=== PATIENT | male | born 1970 | race American Indian/Alaskan Native ===

== ENCOUNTER 2016-12-22 09:44 | Emergency (ER) | payer SELFPAY ==
[2016-12-22 10:49] VITALS: BP 179/115
--- NOTE | 2016-12-22 10:51 | Emergency Department Report ---
Chief Complaint: Extremity Injury, Lower Stated Complaint: RT SIDE NUMBNESS,FINGER SWELLING Time Seen by Provider: 12/22/16 10:46 - HPI History of Present Illness: PT c/o RUE and RLE edema since yesterday PT states he has a hx of gout - ROS Review of Systems: - fever + headache + rue and rle with painful edema - rash - Exam Physical Exam: PT looks well, non toxic +1 pitting edema ble No R calf tenderness negative homans MSE screening note: Focused history and physical exam performed. Due to findings the following was ordered: labs ED Disposition for MSE Condition: Stable
[2016-12-22 11:12] LABS: Basophils % (Auto) 1.1 % (0.0-1.8); Eosinophils % (Auto) 2.4 % (0.0-4.3); Hemoglobin 11.2 gm/dl (11.8-15.2); Mean Corpuscular HGB Conc 32 % (32-34); Mean Corpuscular Hemoglobin 29 pg (28-32); Mean Corpuscular Volume 90 fl (84-94); Platelet Count 369 K/mm3 (140-440); Red Blood Count 3.91 M/mm3 (3.65-5.03); Red Cell Distribution Width 15.5 % (13.2-15.2); White Blood Count 12.6 K/mm3 (4.5-11.0)
[2016-12-22 11:35] LABS: Alanine Aminotransferase 23 units/L (7-56); Albumin 4.2 g/dL (3.9-5); Alkaline Phosphatase 82 units/L (35-129); Anion Gap 18 mmol/L; BUN/Creatinine Ratio 19.23; Blood Urea Nitrogen 25 mg/dL (9-20); Calcium 9.4 mg/dL (8.4-10.2); Carbon Dioxide 23 mmol/L (22-30); Chloride 101.1 mmol/L (98-107); Creatine Kinase 226 units/L (55-170); Glucose 109 mg/dL (75-100); Potassium 4.4 mmol/L (3.6-5.0); Sodium 138 mmol/L (137-145); Total Protein 8.4 g/dL (6.3-8.2); Uric Acid 11.5 mg/dL (3.5-7.6)
--- NOTE | 2016-12-27 10:59 | ED Elopement Review ---
ED Pt Elopement review - Results review Lab results: Laboratory Tests 12/22/16 12/22/16 10:58 10:58 WBC 12.6 H RBC 3.91 Hgb 11.2 L Hct 35.0 L MCV 90 MCH 29 MCHC 32 RDW 15.5 H Plt Count 369 Lymph % (Auto) 18.5 [place] % (Auto) 7.3 Eos % (Auto) 2.4 Baso % (Auto) 1.1 Lymph # 2.3 [place] # 0.9 H Eos # 0.3 Baso # 0.1 Seg Neutrophils % 70.7 H Seg Neutrophils # 8.9 H Sodium 138 Potassium 4.4 Chloride 101.1 Carbon Dioxide 23 Anion Gap 18 BUN 25 H Creatinine 1.3 Estimated GFR > 60 BUN/Creatinine Ratio 19.23 Glucose 109 H Uric Acid 11.5 H Calcium 9.4 Total Bilirubin 0.20 AST 18 ALT 23 Alkaline Phosphatase 82 Total Creatine Kinase 226 H Total Protein 8.4 H Albumin 4.2 Albumin/Globulin Ratio 1.0 - Call Back decision Pt Call Back Decision: No action required
== END 2016-12-22 11:00 | disposition left against medical advice (07) ==
LOC: ED 09:44
DX: R20.0 Anesthesia of skin (principal); M79.89 Other specified soft tissue disorders; Z53.21 Procedure and treatment not carried out due to patient leaving prior to being seen by health care provider
CPT/HCPCS: 36415; 80053; 82550; 84550; 85025

== ENCOUNTER 2017-06-08 19:17 | Emergency (ER) | payer SELFPAY ==
[2017-06-08 20:46] LABS: Eosinophils % (Auto) 1.3 % (0.0-4.3); Hematocrit 31.3 % (35.5-45.6); Hemoglobin 10.1 gm/dl (11.8-15.2); Mean Corpuscular HGB Conc 32 % (32-34); Mean Corpuscular Hemoglobin 28 pg (28-32); Mean Corpuscular Volume 86 fl (84-94); Platelet Count 393 K/mm3 (140-440); Red Blood Count 3.66 M/mm3 (3.65-5.03); Red Cell Distribution Width 15.6 % (13.2-15.2); White Blood Count 15.1 K/mm3 (4.5-11.0)
[2017-06-08 21:09] LABS: BUN/Creatinine Ratio 11; Blood Urea Nitrogen 14 mg/dL (9-20); Calcium 9.2 mg/dL (8.4-10.2); Carbon Dioxide 23 mmol/L (22-30); Glucose 103 mg/dL (75-100)
[2017-06-08 21:10] LABS: Anion Gap 20 mmol/L; Chloride 101.4 mmol/L (98-107); Potassium 3.9 mmol/L (3.6-5.0); Sodium 140 mmol/L (137-145)
--- NOTE | 2017-06-08 21:15 | XRay Report ---
FINAL REPORT PROCEDURE: XR CHEST ROUTINE 2V TECHNIQUE: PA and lateral chest radiographs were obtained. CPT 12059 HISTORY: Shortness of breath COMPARISON: No prior studies are available for comparison. FINDINGS: Heart: Normal. Mediastinum/Vessels: Normal. Lungs/Pleural space: Normal. Bony thorax: No acute osseous abnormality. Other: IMPRESSION: Normal examination.
[2017-06-09 01:34] LABS: Bilirubin,Urine NEG (Negative); Blood,Urine NEG (Negative); Ketones,Urine NEG (Negative); Leukocyte Esterase,Urine NEG (Negative); Mucus,Urine FEW /HPF; Nitrite,Urine NEG (Negative); RBC,Urine < 1.0 /HPF (0.0-6.0); Urobilinogen,Urine < 2.0 mg/dL (<2.0)
[2017-06-09] MEDS ORDERED: DILAUDID IV ONE (07:00)
[2017-06-09] MEDS ORDERED: NACL 0.9% 1000 ML 1,000 ML IV ONE (07:00)
--- NOTE | 2017-06-09 07:01 | Emergency Department Report ---
ED General Adult HPI - General Chief complaint: Chest Pain Stated complaint: FLANK PAIN Time Seen by Provider: 06/09/17 06:45 Source: patient, RN notes reviewed, old records reviewed Mode of arrival: Ambulatory Limitations: No Limitations - History of Present Illness Initial comments: This is a 47-year-old male. Patient has a past medical history of hypertension , gallops, obesity. Patient presents to the ER with left lower back pain that has been present since Thursday, now associated with right lower back pain. He also indicates that the back pain involves his upper thoracic region, left paracervical neck region, and also left-sided chest wall region. However, his chest wall discomfort has been present for weeks, and he describes it as "pulling." He also describes right foot swelling which has since resolved. There is no severe headache, midline neck pain, severe shortness of breath, testicular pain , or irritative urinary symptoms. His pain in the left back increases with range of motion and twisting. It decreases with rest. On review of systems he also admits to bright red blood per rectum for one week. No DVT or pulmonary most risk factors. -: Gradual, days(s) Location: chest, back, left, lower extremity Severity scale (0 -10): 3 Quality: aching Consistency: intermittent Improves with: rest Worsens with: movement Associated Symptoms: chest pain. denies: confusion, fever/chills, rash, seizure , syncope, weakness - Related Data Previous Rx's Medication Instructions Recorded Last Taken Type ALBUTEROL Inhaler [ProAir HFA 2 puff IH QID PRN #1 unit 05/18/16 Unknown Rx Inhaler] Amoxicillin/K Clav Tab [Augmentin 1 tab PO Q12HR #4 day 05/18/16 Unknown Rx 875 mg] guaiFENesin/CODEINE [Robitussin AC] 5 ml PO Q12H PRN #30 oral.liqd 05/18/16 Unknown Rx oxyCODONE /ACETAMINOPHEN [Percocet 1 tab PO Q6H PRN #30 tablet 05/18/16 Unknown Rx 5/325 mg] Carvedilol [Coreg] 12.5 mg PO BID #60 tablet 09/11/16 Unknown Rx Acetaminophen [Tylenol Arthritis] 650 mg PO Q6HR PRN #30 tablet.er 06/09/17 Unknown Rx Ibuprofen [Motrin] 600 mg PO Q8H PRN #30 tablet 06/09/17 Unknown Rx Ondansetron [Zofran Odt] 4 mg PO Q8HR PRN #20 tab.rapdis 06/09/17 Unknown Rx Allergies Allergy/AdvReac Type Severity Reaction Status Date / Time No Known Allergies Allergy Verified 10/17/15 14:34 ED Review of Systems ROS: Stated complaint: FLANK PAIN Other details as noted in HPI Constitutional: denies: fever Eyes: denies: eye discharge ENT: denies: epistaxis Respiratory: see HPI Cardiovascular: chest pain Gastrointestinal: abdominal pain Genitourinary: as per HPI Musculoskeletal: back pain Skin: as per HPI Neurological: weakness ED Past Medical Hx - Past Medical History Previous Medical History?: Yes Hx Hypertension: Yes Additional medical history: GOUT. anemia - Surgical History Past Surgical History?: No - Social History Smoking Status: Never Smoker Substance Use Type: None - Medications Home Medications: Home Medications Medication Instructions Recorded Confirmed Last Taken Type ALBUTEROL Inhaler [ProAir HFA 2 puff IH QID PRN #1 unit 05/18/16 Unknown Rx Inhaler] Amoxicillin/K Clav Tab [Augmentin 1 tab PO Q12HR #4 day 05/18/16 Unknown Rx 875 mg] guaiFENesin/CODEINE [Robitussin AC] 5 ml PO Q12H PRN #30 oral.liqd 05/18/16 Unknown Rx oxyCODONE /ACETAMINOPHEN [Percocet 1 tab PO Q6H PRN #30 tablet 05/18/16 Unknown Rx 5/325 mg] Carvedilol [Coreg] 12.5 mg PO BID #60 tablet 09/11/16 Unknown Rx Acetaminophen [Tylenol Arthritis] 650 mg PO Q6HR PRN #30 tablet.er 06/09/17 Unknown Rx Ibuprofen [Motrin] 600 mg PO Q8H PRN #30 tablet 06/09/17 Unknown Rx Ondansetron [Zofran Odt] 4 mg PO Q8HR PRN #20 tab.rapdis 06/09/17 Unknown Rx ED Physical Exam - General Limitations: No Limitations General appearance: alert, in no apparent distress, obese - Head Head exam: Present: atraumatic, normocephalic - Eye Eye exam: Present: normal appearance, PERRL, EOMI, other (visual acuity intact to finger counting, color perception, reading at a close distance). Absent: nystagmus - ENT ENT exam: Present: normal exam, normal orophraynx, mucous membranes moist, normal external ear exam - Neck Neck exam: Present: normal inspection, full ROM - Respiratory Respiratory exam: Present: normal lung sounds bilaterally. Absent: respiratory distress - Cardiovascular Cardiovascular Exam: Present: regular rate, normal rhythm, normal heart sounds. Absent: systolic murmur, diastolic murmur, rubs, gallop - GI/Abdominal GI/Abdominal exam: Present: soft, normal bowel sounds. Absent: distended, tenderness, guarding, rebound, rigid, pulsatile mass - Rectal Rectal exam: Present: normal inspection, heme (-) stool - Extremities Exam Extremities exam: Present: normal inspection, full ROM, normal capillary refill. Absent: pedal edema, joint swelling, calf tenderness - Back Exam Back exam: Present: normal inspection, full ROM, paraspinal tenderness - Neurological Exam Neurological exam: Present: alert, oriented X3, CN II-XII intact, other ( Extraocular movements intact. Tongue midline. No facial droop. Facial sensation intact to light touch in the V1, V2, V3 distribution bilaterally. 5 and 5 strength in 4 extremities.. Sensation is intact to light touch in 4 extremities.). Absent: motor sensory deficit - Psychiatric Psychiatric exam: Present: normal affect, normal mood - Skin Skin exam: Present: warm, dry, intact, normal color. Absent: rash ED Course Vital Signs 06/08/17 06/08/17 06/09/17 19:49 19:50 01:34 Temperature 98.4 F 98.1 F Pulse Rate 76 76 68 Respiratory 20 18 Rate Blood Pressure 165/100 165/100 182/107 O2 Sat by Pulse 98 98 100 Oximetry 06/09/17 06/09/17 06/09/17 02:00 02:19 02:30 Temperature Pulse Rate 76 Respiratory 18 15 Rate Blood Pressure 181/101 165/93 O2 Sat by Pulse 99 96 Oximetry 06/09/17 06/09/17 06/09/17 03:00 03:30 04:00 Temperature Pulse Rate 81 76 71 Respiratory 17 17 16 Rate Blood Pressure 157/93 148/78 155/92 O2 Sat by Pulse 97 Oximetry 06/09/17 06/09/17 06/09/17 04:30 05:00 05:31 Temperature Pulse Rate 74 73 67 Respiratory 19 18 17 Rate Blood Pressure 145/82 149/87 149/87 O2 Sat by Pulse 96 95 Oximetry 06/09/17 06/09/17 06/09/17 06:00 06:30 07:00 Temperature Pulse Rate 67 65 67 Respiratory 16 14 15 Rate Blood Pressure 153/92 155/96 165/104 O2 Sat by Pulse 98 93 97 Oximetry 06/09/17 06/09/17 06/09/17 08:50 09:00 09:17 Temperature 98 F Pulse Rate Respiratory Rate Blood Pressure 169/102 168/92 O2 Sat by Pulse 98 Oximetry 06/09/17 10:00 Temperature Pulse Rate Respiratory Rate Blood Pressure 156/93 O2 Sat by Pulse Oximetry - Reevaluation(s) Reevaluation #1: 06/09/17 07:18 Differential diagnosis, including the not limited to: Pulmonary embolus, pneumonia, renal colic, psoas abscess, intra-abdominal infection, muscular skeletal back pain, history of GI bleed Assessment and plan: 47-year-old male with multiple complaints, mostly including back pain, left-sided upper and lower, body aches, and right foot swelling. On review of systems he did endorse rectal bleeding. Patient is low risk by BARB score, low risk by heart score, had a negative nuclear stress test in 2016, his EKG does demonstrate some nonspecific abnormalities, with some nonspecific T-wave changes. CT scan of the chest is pending, CT scan of the abdomen and pelvis is pending, a rectal examination, there is no obvious blood in his hemoglobin and hematocrit appeared to be acceptable. Patient will be given IV fluids, and 0.25 mg of hydromorphone. We will reassess after CT scans. 06/09/17 07:22 However, the patient's EKGs and serial do suggest some nonspecific T-wave changes 06/09/17 09:37 Reevaluation #2: 06/09/17 09:37 Patient sleeping. Patient in no distress. CT scan of the chest, abdomen, pelvis demonstrate no significant findings. Have a page out to cardiology to discuss. Reevaluation #3: 06/09/17 11:52 Patient has been resting comfortably for hours without difficulty. His chest pain is historically atypical, has been present for weeks. His case, physical exam findings EKG and entire presentation were relayed to consult and cardiology , Dr. Harris, who agreed that given atypical story and weeks of symptoms, patient would not require admission to the hospital for repeat acute coronary syndrome risk stratification, and agreed that patient should follow-up with his group later on this week. ED Medical Decision Making - Lab Data Result diagrams: 06/08/17 20:31 06/08/17 20:31 Vital Signs 06/08/17 06/08/17 06/09/17 19:49 19:50 01:34 Temperature 98.4 F 98.1 F Pulse Rate 76 76 68 Respiratory 20 18 Rate Blood Pressure 165/100 165/100 182/107 O2 Sat by Pulse 98 98 100 Oximetry 06/09/17 06/09/17 06/09/17 02:00 02:19 02:30 Temperature Pulse Rate 76 Respiratory 18 15 Rate Blood Pressure 181/101 165/93 O2 Sat by Pulse 99 96 Oximetry 06/09/17 06/09/17 06/09/17 03:00 03:30 04:00 Temperature Pulse Rate 81 76 71 Respiratory 17 17 16 Rate Blood Pressure 157/93 148/78 155/92 O2 Sat by Pulse 97 Oximetry 06/09/17 06/09/17 06/09/17 04:30 05:00 05:31 Temperature Pulse Rate 74 73 67 Respiratory 19 18 17 Rate Blood Pressure 145/82 149/87 149/87 O2 Sat by Pulse 96 95 Oximetry 06/09/17 06/09/17 06:00 06:30 Temperature Pulse Rate 67 65 Respiratory 16 14 Rate Blood Pressure 153/92 155/96 O2 Sat by Pulse 98 93 Oximetry Lab Results 06/08/17 06/08/17 06/09/17 Range/Units 20:31 20:31 01:00 WBC 15.1 H (4.5-11.0) K/mm3 RBC 3.66 (3.65-5.03) M/mm3 Hgb 10.1 L (11.8-15.2) gm/dl Hct 31.3 L (35.5-45.6) % MCV 86 (84-94) fl MCH 28 (28-32) pg MCHC 32 (32-34) % RDW 15.6 H (13.2-15.2) % Plt Count 393 (140-440) K/mm3 Lymph % (Auto) 18.1 (13.4-35.0) % [place] % (Auto) 8.7 H (0.0-7.3) % Eos % (Auto) 1.3 (0.0-4.3) % Baso % (Auto) 1.0 (0.0-1.8) % Lymph # 2.7 (1.2-5.4) K/mm3 [place] # 1.3 H (0.0-0.8) K/mm3 Eos # 0.2 (0.0-0.4) K/mm3 Baso # 0.1 (0.0-0.1) K/mm3 Seg Neutrophils % 70.9 H (40.0-70.0) % Seg Neutrophils # 10.7 H (1.8-7.7) K/mm3 Sodium 140 (137-145) mmol/L Potassium 3.9 (3.6-5.0) mmol/L Chloride 101.4 (98-107) mmol/L Carbon Dioxide 23 (22-30) mmol/L Anion Gap 20 mmol/L BUN 14 (9-20) mg/dL Creatinine 1.3 (0.8-1.5) mg/dL Estimated GFR > 60 ml/min BUN/Creatinine Ratio 11 % Glucose 103 H (75-100) mg/dL Calcium 9.2 (8.4-10.2) mg/dL Troponin T < 0.010 (0.00-0.029) ng/mL Urine Color Yellow (Yellow) Urine Turbidity Clear (Clear) Urine pH 5.0 (5.0-7.0) Ur Specific [place] 1.013 (1.003-1.030) Urine Protein 30 mg/dl (Negative) mg/dL Urine Glucose (UA) Neg (Negative) mg/dL Urine Ketones Neg (Negative) mg/dL Urine Blood Neg (Negative) Urine Nitrite Neg (Negative) Urine Bilirubin Neg (Negative) Urine Urobilinogen < 2.0 (<2.0) mg/dL Ur Leukocyte Esterase Neg (Negative) Urine WBC (Auto) 2.0 (0.0-6.0) /HPF Urine RBC (Auto) < 1.0 (0.0-6.0) /HPF U Epithel Cells (Auto) 1.0 (0-13.0) /HPF Urine Mucus Few /HPF - EKG Data -: EKG Interpreted by Me - EKG Data 12/05/17 07:20 Normal sinus, 73 bpm, normal axis, normal intervals, high left ventricular voltage, appears unchanged from prior EKG from September 2016. EKG #2 demonstrates normal sinus, 69 bpm, normal axis, biphasic T waves in V4, V5, nonspecific ST elevation, abnormal EKG, nonspecific changes compared to prior EKG #3 demonstrates persistent T-wave changes, nonspecific ST elevation, high left ventricular voltage, not morphologically consistent with ST elevation myocardial infarction - Radiology Data Radiology results: report reviewed, image reviewed X-ray of the chest is negative for acute disease CT scan of the chest, abdomen, pelvis have no significant findings. Critical care attestation.: If time is entered above; I have spent that time in minutes in the direct care of this critically ill patient, excluding procedure time. ED Disposition Clinical Impression: Low back pain, Chest pain Disposition: TO HOME OR SELFCARE Is pt being admited?: No Does the pt Need Aspirin: No Condition: Stable Instructions: Chest Pain (ED) Additional Instructions: Take the pain medication, nausea medication as directed. 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 Blood pressure was elevated, and this should be followed up by a primary care doctor or [employer] team leader next month. Dr. Parada is a local primary care doctor. Long-term palpitations of hypertension and elevated blood pressure includes stroke, heart attack, disability, , paralysis, loss of quality of life. Return to the ER right away with new pain, worsening, migration of pain, fevers, chills, lethargy, irritable to, projectile vomiting, change in mental status, confusion, inability to tolerate liquid feeds. Prescriptions: Acetaminophen [Tylenol Arthritis] 650 mg PO Q6HR PRN #30 tablet.er PRN Reason: Pain Ibuprofen [Motrin] 600 mg PO Q8H PRN #30 tablet PRN Reason: Pain Ondansetron [Zofran Odt] 4 mg PO Q8HR PRN #20 tab.rapdis PRN Reason: Nausea Referrals: PRIMARY CARE, [Primary Care Provider] - 3-5 Days BASILIA HARRIS MD [Staff Physician] - 3-5 Days PATSY PARADA MD [Referring] - 3-5 Days KAYLYN BOLIVAR MD [Referring] - 3-5 Days
[2017-06-09] MEDS ORDERED: NACL ONE (07:26)
--- NOTE | 2017-06-09 08:29 | Cat Scan Report ---
CT angiography of the chest with 3-D reconstructed images. History: Chest and back pain. Findings: There is no evidence of pulmonary emboli. The lungs are clear. There is no pleural fluid. Impression: Normal study.
--- NOTE | 2017-06-09 08:37 | Cat Scan Report ---
CT of the abdomen and pelvis with IV contrast. History: Right flank and abdominal pain. Findings: The liver, spleen, and pancreas are unremarkable. The adrenal glands are normal. There are multiple bilateral renal cysts, the largest of which in the right kidney measures 3.6 cm in diameter and is stable compared to previous study in May 2016. There are no other significant renal abnormalities. There no pelvic masses or abnormal fluid collections. No retroperitoneal adenopathy is seen. The appendix is normal. Impression: Stable bilateral renal cysts, otherwise unremarkable study.
[2017-06-09 10:46] VITALS: BP 156/93
== END 2017-06-09 12:03 | disposition home or self-care (01) ==
LOC: ED 19:17
DX: M54.5 Low back pain (principal); M54.6 Pain in thoracic spine; R07.89 Other chest pain; I10 Essential (primary) hypertension; M10.9 Gout, unspecified; M54.2 Cervicalgia; N28.1 Cyst of kidney, acquired
CPT/HCPCS: 36415; 71020; 71275; 74177; 80048; 81001; 82271; 84484; 85025; 93005; 93010; 96361; 96374; 99284; J1170; J7030; Q9967

== ENCOUNTER 2017-12-17 12:03 | Emergency (ER) | payer SELFPAY ==
[2017-12-17] MEDS ORDERED: TORADOL IM ONE (12:56)
[2017-12-17] MEDS ORDERED: ULTRAM PO ONE (12:56)
[2017-12-17] MEDS ORDERED: CATAPRES PO ONE (12:56)
--- NOTE | 2017-12-17 12:59 | Emergency Department Report ---
Blank Doc - Documentation Documentation: 47-year-old male with a past medical history of hypertension and gout presents to the hospital complaining of generalized body aches 2 weeks. Patient has multiple joints involved in a moves around to different joints all the time. Contrary to triage patient denies any numbness. No reports of fever. Noncompliant with blood pressure medicine since April 2017 Basic blood work ordered cbc, bmp toradol, tramadol clonindine for bp If ED workup unremarkable patient will need BP medication and PMD follow-up ( free/discounted clinic) For further management
[2017-12-17 13:10] VITALS: BP 142/98
[2017-12-17 13:25] LABS: Basophils # (Auto) 0.1 K/mm3 (0.0-0.1); Basophils % (Auto) 1.1 % (0.0-1.8); Eosinophils # (Auto) 0.2 K/mm3 (0.0-0.4); Eosinophils % (Auto) 1.4 % (0.0-4.3); Hematocrit 30.8 % (35.5-45.6); Hemoglobin 9.6 gm/dl (11.8-15.2); Lymphocytes # (Auto) 2.1 K/mm3 (1.2-5.4); Lymphocytes % (Auto) 16.8 % (13.4-35.0); Mean Corpuscular HGB Conc 31 % (32-34); Mean Corpuscular Volume 79 fl (84-94); Monocytes # (Auto) 0.5 K/mm3 (0.0-0.8); Monocytes % (Auto) 4.4 % (0.0-7.3); Platelet Count 484 K/mm3 (140-440); Red Blood Count 3.91 M/mm3 (3.65-5.03); Red Cell Distribution Width 16.5 % (13.2-15.2)
[2017-12-17 13:27] LABS: Mean Corpuscular Hemoglobin 25 pg (28-32)
[2017-12-17 13:42] LABS: BUN/Creatinine Ratio 10; Blood Urea Nitrogen 15 mg/dL (9-20); Calcium 9.4 mg/dL (8.4-10.2); Hemolysis Index 3
--- NOTE | 2017-12-17 14:29 | Emergency Department Report ---
ED Extremity Problem HPI - General Chief complaint: Pain General Stated complaint: RIGHT SIDE NUMBNESS Time Seen by Provider: 12/17/17 12:42 Source: patient Mode of arrival: Wheelchair Limitations: No Limitations - History of Present Illness Initial comments: 47-year-old male past medical history hypertension, gout, anemia presents with complaint of several years of joint aches. Patient denies fever chills nausea vomiting chest pain palpitations shortness of breath denies any recent trauma. Complaining of chronic pain and lower back left shoulder bilateral elbows bilateral wrists and bilateral knees. Patient is ambulatory without assistance. Past medical history drug use, specifically cocaine. Patient denies any chest pain palpitations shortness of breath nausea vomiting dizziness. Denies any fevers or chills. Ambulatory without assistance. Denies smoking or alcohol use. States that this joint pain has been going on for several years. Denies any rectal bleeding or hematuria. MD Complaint: extremity pain -: year(s) Location: left, right, upper extremity, lower extremity, bilateral lower extremity -: Yes arthralgia Severity scale (0 -10): 10 Quality: aching Consistency: intermittent - Related Data Previous Rx's Medication Instructions Recorded Last Taken Type ALBUTEROL Inhaler [ProAir HFA 2 puff IH QID PRN #1 unit 05/18/16 Unknown Rx Inhaler] Amoxicillin/K Clav Tab [Augmentin 1 tab PO Q12HR #4 day 05/18/16 Unknown Rx 875 mg] guaiFENesin/CODEINE [Robitussin AC] 5 ml PO Q12H PRN #30 oral.liqd 05/18/16 Unknown Rx oxyCODONE /ACETAMINOPHEN [Percocet 1 tab PO Q6H PRN #30 tablet 05/18/16 Unknown Rx 5/325 mg] Carvedilol [Coreg] 12.5 mg PO BID #60 tablet 09/11/16 Unknown Rx Acetaminophen [Tylenol Arthritis] 650 mg PO Q6HR PRN #30 tablet.er 06/09/17 Unknown Rx Ibuprofen [Motrin] 600 mg PO Q8H PRN #30 tablet 06/09/17 Unknown Rx Ondansetron [Zofran Odt] 4 mg PO Q8HR PRN #20 tab.rapdis 06/09/17 Unknown Rx Ibuprofen [Motrin] 600 mg PO Q8H PRN #20 tablet 12/17/17 Unknown Rx Multivit-Mins/Iron/Folic/Lycop 1 each PO QDAY #1 bottle 12/17/17 Unknown Rx [Men Under 50 Multivitamin Tab] amLODIPine [Norvasc] 5 mg PO DAILY #30 tab 12/17/17 Unknown Rx Allergies Allergy/AdvReac Type Severity Reaction Status Date / Time No Known Allergies Allergy Verified 10/17/15 14:34 ED Review of Systems ROS: Stated complaint: RIGHT SIDE NUMBNESS Other details as noted in HPI Constitutional: denies: chills, fever Eyes: denies: eye pain, eye discharge, vision change ENT: denies: ear pain, throat pain Respiratory: denies: cough, shortness of breath, wheezing Cardiovascular: denies: chest pain, palpitations Endocrine: no symptoms reported Gastrointestinal: denies: abdominal pain, nausea, diarrhea Genitourinary: denies: urgency, dysuria Musculoskeletal: as per HPI, arthralgia (chronic joint pain). denies: back pain , joint swelling Skin: denies: rash, lesions Neurological: denies: headache, weakness, paresthesias Psychiatric: denies: anxiety, depression Hematological/Lymphatic: denies: easy bleeding, easy bruising ED Past Medical Hx - Past Medical History Previous Medical History?: Yes Hx Hypertension: Yes Additional medical history: GOUT. anemia, Hx of drug use. No tx for drug use - Surgical History Past Surgical History?: No - Social History Smoking Status: Former Smoker Substance Use Type: Alcohol - Medications Home Medications: Home Medications Medication Instructions Recorded Confirmed Last Taken Type ALBUTEROL Inhaler [ProAir HFA 2 puff IH QID PRN #1 unit 05/18/16 Unknown Rx Inhaler] Amoxicillin/K Clav Tab [Augmentin 1 tab PO Q12HR #4 day 05/18/16 Unknown Rx 875 mg] guaiFENesin/CODEINE [Robitussin AC] 5 ml PO Q12H PRN #30 oral.liqd 05/18/16 Unknown Rx oxyCODONE /ACETAMINOPHEN [Percocet 1 tab PO Q6H PRN #30 tablet 05/18/16 Unknown Rx 5/325 mg] Carvedilol [Coreg] 12.5 mg PO BID #60 tablet 09/11/16 Unknown Rx Acetaminophen [Tylenol Arthritis] 650 mg PO Q6HR PRN #30 tablet.er 06/09/17 Unknown Rx Ibuprofen [Motrin] 600 mg PO Q8H PRN #30 tablet 06/09/17 Unknown Rx Ondansetron [Zofran Odt] 4 mg PO Q8HR PRN #20 tab.rapdis 06/09/17 Unknown Rx Ibuprofen [Motrin] 600 mg PO Q8H PRN #20 tablet 12/17/17 Unknown Rx Multivit-Mins/Iron/Folic/Lycop 1 each PO QDAY #1 bottle 12/17/17 Unknown Rx [Men Under 50 Multivitamin Tab] amLODIPine [Norvasc] 5 mg PO DAILY #30 tab 12/17/17 Unknown Rx ED Physical Exam - General Limitations: No Limitations General appearance: alert, in no apparent distress - Head Head exam: Present: atraumatic, normocephalic - Eye Eye exam: Present: normal appearance, PERRL, EOMI - ENT ENT exam: Present: mucous membranes moist - Neck Neck exam: Present: normal inspection, full ROM - Respiratory Respiratory exam: Present: normal lung sounds bilaterally. Absent: respiratory distress - Cardiovascular Cardiovascular Exam: Present: regular rate, normal rhythm. Absent: systolic murmur, diastolic murmur, rubs, gallop - GI/Abdominal GI/Abdominal exam: Present: soft, normal bowel sounds - Rectal Rectal exam: Present: deferred - Extremities Exam Extremities exam: Present: normal inspection, full ROM (full range of motion all extremities upper and lower shoulders elbows wrists and knees hips ankles and feet bilaterally.) - Back Exam Back exam: Present: normal inspection, full ROM - Neurological Exam Neurological exam: Present: alert, oriented X3, CN II-XII intact, normal gait - Expanded Neurological Exam Expanded Patient oriented to: Present: person, place, time Sensory exam: Upper Extremity Light Touch: Normal, Lower Extremity Light Touch: Normal Motor strength exam: RUE: 5, LUE: 5, RLE: 5, LLE: 5 Best Eye Response ([place]): (4) open spontaneously Best Motor Response ([place]): (6) obeys commands Best Verbal Response ([place]): (5) oriented [place] Total: 15 - Psychiatric Psychiatric exam: Present: normal affect, normal mood - Skin Skin exam: Present: warm, dry, intact, normal color. Absent: rash ED Course Vital Signs 12/17/17 12/17/17 12/17/17 12:18 13:09 13:12 Temperature 97.4 F L Pulse Rate 77 62 62 Respiratory 20 Rate Blood Pressure 181/109 142/98 Blood Pressure 142/98 [Left] O2 Sat by Pulse 99 Oximetry ED Medical Decision Making - Lab Data Result diagrams: 12/17/17 13:04 12/17/17 13:04 - Medical Decision Making A/P: Chronic joint pain, anemia, hypertension chronic 1-prescribed patient iron supplements and multivitamins. I informed him of his mild anemia. Patient denies any hematuria or rectal bleeding. Patient denies any current bleeding. I advised him to follow-up with primary care 2- labs otherwise unremarkable, I reviewed them with Dr. Rodriguez before discharge 3-vital signs stable for discharge. 4-low-dose Norvasc follow-up with primary care I advised patient to return to the ED for any chest pain shortness of breath palpitations Critical care attestation.: If time is entered above; I have spent that time in minutes in the direct care of this critically ill patient, excluding procedure time. ED Disposition Clinical Impression: Body aches, Chronic joint pain, Asymptomatic hypertension Disposition: - TO HOME OR SELFCARE Is pt being admited?: No Does the pt Need Aspirin: No Condition: Stable Instructions: Hypertension (ED), Arthralgia (ED), Iron Rich Diet (ED), Anemia ( ED) Prescriptions: amLODIPine [Norvasc] 5 mg PO DAILY #30 tab Ibuprofen [Motrin] 600 mg PO Q8H PRN #20 tablet PRN Reason: Pain Multivit-Mins/Iron/Folic/Lycop [Men Under 50 Multivitamin Tab] 1 each PO QDAY # 1 bottle Referrals: [facility] [Outside] - 3-5 Days [facility] [Outside] - 3-5 Days Forms: Work/School Release Form(ED) Time of Disposition: 14:35
[2017-12-17] MEDS ORDERED: NORCO 5/325 PO ONE (14:33)
== END 2017-12-17 14:43 | disposition home or self-care (01) ==
LOC: ED 12:03
DX: M79.1 Myalgia (principal); I10 Essential (primary) hypertension; D64.9 Anemia, unspecified; Z87.891 Personal history of nicotine dependence
CPT/HCPCS: 36415; 80048; 82550; 85025; 96372; 99283; J1885

== ENCOUNTER 2018-01-04 12:21 | Emergency (ER) | payer SELFPAY ==
[2018-01-04 12:30] VITALS: BP 154/93
--- NOTE | 2018-01-04 13:27 | Emergency Department Report ---
Chief Complaint: Extremity Injury, Lower Stated Complaint: LIGHT HEADED AND LEFT FOOT PAIN Time Seen by Provider: 01/04/18 13:03 - HPI History of Present Illness: Patient is a 47-year-old -[place] male who is presenting with left foot swelling. Patient has a history of gout and is not her primary care physician. Patient states for the past several days he's had some increased swelling is consistent with his gout. Patient denies any fevers chills nausea vomiting. There's been no injury to the foot. Patient states the pain is 8 out of 10 in severity. - ROS Review of Systems: All other systems reviewed are negative - Exam Vital Signs: Vital Signs 01/04/18 12:27 Temperature 98.3 F Pulse Rate 92 H Respiratory 18 Rate Blood Pressure 154/93 O2 Sat by Pulse 99 Oximetry Physical Exam: Focused physical exam the patient has some slight swelling and warmth to the left foot with no erythema. Heart lungs were within normal limits. MSE screening note: Focused history and physical exam performed. Due to findings the following was ordered: ED Medical Decision Making - Medical Decision Making The patient's symptoms are consistent with a gouty arthritis. This is a chronic issue the patient has had numerous times. Patient has a nonmedical emergency at this time and has opted to not pale or 150s co-pay. Patient referred to [facility] today to get his urgent care needs met. ED Disposition for MSE Clinical Impression: Gout attack Qualifiers: Gout site: foot Gout etiology: unspecified cause Laterality: left Qualified Code(s): M10.9 - Gout, unspecified Disposition: MED SCREENING EXAM-LEFT Is pt being admited?: No Does the pt Need Aspirin: No Condition: Stable Referrals: PRIMARY CARE, [Primary Care Provider] - 3-5 Days
== END 2018-01-04 14:22 | disposition left against medical advice (07) ==
LOC: ED 12:21
DX: M10.9 Gout, unspecified (principal); R22.42 Localized swelling, mass and lump, left lower limb; Z53.21 Procedure and treatment not carried out due to patient leaving prior to being seen by health care provider

== ENCOUNTER 2018-01-09 12:56 | Inpatient (IN) | payer OTHER ==
--- NOTE | 2018-01-09 17:10 | Emergency Department Report ---
ED General Adult HPI - General Chief complaint: Pain General Stated complaint: PAIN EVERY WHERE Time Seen by Provider: 01/09/18 15:28 Source: patient Mode of arrival: Wheelchair Limitations: No Limitations - History of Present Illness Initial comments: History of dorsal right foot redness history of gout and history of chronic joint pain history of cocaine abuse here for evaluation of the aches worst pain was right foot seen 5 days ago apparently left to go to the urgent care, he denies chest pain he denies headache he denies stiff neck denies cough or fever -: Gradual, days(s) Radiation: non-radiation Quality: burning Consistency: intermittent Worsens with: none Associated Symptoms: denies other symptoms, malaise. denies: headaches, loss of appetite, nausea/vomiting, rash, seizure, shortness of breath, syncope, weakness - Related Data Previous Rx's Medication Instructions Recorded Last Taken Type ALBUTEROL Inhaler [ProAir HFA 2 puff IH QID PRN #1 unit 05/18/16 Unknown Rx Inhaler] Amoxicillin/K Clav Tab [Augmentin 1 tab PO Q12HR #4 day 05/18/16 Unknown Rx 875 mg] guaiFENesin/CODEINE [Robitussin AC] 5 ml PO Q12H PRN #30 oral.liqd 05/18/16 Unknown Rx oxyCODONE /ACETAMINOPHEN [Percocet 1 tab PO Q6H PRN #30 tablet 05/18/16 Unknown Rx 5/325 mg] Carvedilol [Coreg] 12.5 mg PO BID #60 tablet 09/11/16 Unknown Rx Acetaminophen [Tylenol Arthritis] 650 mg PO Q6HR PRN #30 tablet.er 06/09/17 Unknown Rx Ibuprofen [Motrin] 600 mg PO Q8H PRN #30 tablet 06/09/17 Unknown Rx Ondansetron [Zofran Odt] 4 mg PO Q8HR PRN #20 tab.rapdis 06/09/17 Unknown Rx Ibuprofen [Motrin] 600 mg PO Q8H PRN #20 tablet 12/17/17 Unknown Rx Multivit-Mins/Iron/Folic/Lycop 1 each PO QDAY #1 bottle 12/17/17 Unknown Rx [Men Under 50 Multivitamin Tab] amLODIPine [Norvasc] 5 mg PO DAILY #30 tab 12/17/17 Unknown Rx Allergies Allergy/AdvReac Type Severity Reaction Status Date / Time No Known Allergies Allergy Verified 01/09/18 13:02 ED Review of Systems ROS: Stated complaint: PAIN EVERY WHERE Other details as noted in HPI Comment: All other systems reviewed and negative Constitutional: malaise. denies: diaphoresis Eyes: denies: eye discharge, vision change ENT: denies: dental pain, hearing loss, epistaxis Respiratory: denies: cough, orthopnea, shortness of breath, SOB with exertion, SOB at rest, stridor Cardiovascular: denies: chest pain, palpitations, dyspnea on exertion, orthopnea , edema, syncope Gastrointestinal: denies: abdominal pain, nausea, vomiting, diarrhea, constipation, hematemesis, melena Musculoskeletal: joint swelling, arthralgia, myalgia Neurological: denies: headache, weakness, numbness, paresthesias, confusion, abnormal gait, vertigo ED Past Medical Hx - Past Medical History Hx Hypertension: Yes (non compliant with meds) Hx Arthritis: Yes Additional medical history: GOUT. anemia, Hx of drug use - Social History Smoking Status: Never Smoker Substance Use Type: None - Medications Home Medications: Home Medications Medication Instructions Recorded Confirmed Last Taken Type ALBUTEROL Inhaler [ProAir HFA 2 puff IH QID PRN #1 unit 05/18/16 Unknown Rx Inhaler] Amoxicillin/K Clav Tab [Augmentin 1 tab PO Q12HR #4 day 05/18/16 Unknown Rx 875 mg] guaiFENesin/CODEINE [Robitussin AC] 5 ml PO Q12H PRN #30 oral.liqd 05/18/16 Unknown Rx oxyCODONE /ACETAMINOPHEN [Percocet 1 tab PO Q6H PRN #30 tablet 05/18/16 Unknown Rx 5/325 mg] Carvedilol [Coreg] 12.5 mg PO BID #60 tablet 09/11/16 Unknown Rx Acetaminophen [Tylenol Arthritis] 650 mg PO Q6HR PRN #30 tablet.er 06/09/17 Unknown Rx Ibuprofen [Motrin] 600 mg PO Q8H PRN #30 tablet 06/09/17 Unknown Rx Ondansetron [Zofran Odt] 4 mg PO Q8HR PRN #20 tab.rapdis 06/09/17 Unknown Rx Ibuprofen [Motrin] 600 mg PO Q8H PRN #20 tablet 12/17/17 Unknown Rx Multivit-Mins/Iron/Folic/Lycop 1 each PO QDAY #1 bottle 12/17/17 Unknown Rx [Men Under 50 Multivitamin Tab] amLODIPine [Norvasc] 5 mg PO DAILY #30 tab 12/17/17 Unknown Rx ED Physical Exam - General Limitations: No Limitations General appearance: alert, anxious - Head Head exam: Present: atraumatic, normocephalic - Eye Eye exam: Present: PERRL, EOMI - ENT ENT exam: Present: normal exam - Neck Neck exam: Present: normal inspection. Absent: tenderness, meningismus - Respiratory Respiratory exam: Present: normal lung sounds bilaterally. Absent: respiratory distress, wheezes, rales, rhonchi, prolonged expiratory - Cardiovascular Cardiovascular Exam: Present: regular rate, normal rhythm - GI/Abdominal GI/Abdominal exam: Present: soft. Absent: distended, tenderness, guarding, rebound, rigid, mass, pulsatile mass - Extremities Exam Extremities exam: Present: other (also redness and pain with swelling to the right foot no soft tissue gas appreciated Norvasc intact for range of motion) - Back Exam Back exam: Present: normal inspection - Neurological Exam Neurological exam: Present: alert, oriented X3, CN II-XII intact. Absent: motor sensory deficit - Skin Skin exam: Present: other (cellulitis with right gouty exacerbation to the foot) ED Course Vital Signs 01/09/18 13:02 Temperature 97.3 F L Pulse Rate 73 Respiratory 16 Rate Blood Pressure 177/106 O2 Sat by Pulse 100 Oximetry ED Medical Decision Making - Lab Data Result diagrams: 01/09/18 17:19 01/09/18 17:19 - Radiology Data Radiology results: report reviewed - Medical Decision Making Case was discussed with Dr. Mueller who will evaluate the patient the ED, antibiotics are ordered he does have worsening of a leukocytosis with worsening renal function consideration is for possible admission given likely acute gouty exacerbation with cellulitis with renal insufficiency and acute renal failure he 'll be evaluated by Dr. Mueller in the ED for further evaluation Critical care attestation.: If time is entered above; I have spent that time in minutes in the direct care of this critically ill patient, excluding procedure time. ED Disposition Clinical Impression: Cellulitis of right foot, Acute renal failure (ARF) Disposition: OP ADMIT IP TO THIS HOSP Is pt being admited?: Yes Condition: Stable Referrals: PRIMARY CARE, [Primary Care Provider] - 3-5 Days Time of Disposition: 18:37
[2018-01-09 17:32] LABS: Basophils # (Auto) 0.1 K/mm3 (0.0-0.1); Basophils % (Auto) 0.8 % (0.0-1.8); Eosinophils # (Auto) 0.1 K/mm3 (0.0-0.4); Eosinophils % (Auto) 0.5 % (0.0-4.3); Hematocrit 28.8 % (35.5-45.6); Mean Corpuscular HGB Conc 31 % (32-34); Mean Corpuscular Volume 79 fl (84-94); Monocytes # (Auto) 1.3 K/mm3 (0.0-0.8); Monocytes % (Auto) 7.4 % (0.0-7.3); Platelet Count 596 K/mm3 (140-440); Red Blood Count 3.64 M/mm3 (3.65-5.03); Red Cell Distribution Width 17.7 % (13.2-15.2)
[2018-01-09 17:35] LABS: Mean Corpuscular Hemoglobin 25 pg (28-32)
[2018-01-09 17:47] LABS: Alanine Aminotransferase 15 units/L (7-56); Albumin 3.9 g/dL (3.9-5); BUN/Creatinine Ratio 14; Blood Urea Nitrogen 22 mg/dL (9-20); Calcium 9.6 mg/dL (8.4-10.2); Hemolysis Index 0
--- NOTE | 2018-01-09 17:50 | XRay Report ---
FINAL REPORT EXAM: XR FOOT 3+V RT HISTORY: foot pain TECHNIQUE: 3 views of the right foot PRIORS: None. FINDINGS: Plantar calcaneal bone spurring is small. Achilles enthesopathy is moderate. Multifocal degenerative change with midfoot and hallux MTP joint predominance. Nonspecific subtle lucencies are noted in the base of the hallux distal phalanx as well as medial base of the 2nd toe distal phalanx. These may reflect superimposition artifact but acute nondisplaced fractures are possible in the appropriate clinical setting. IMPRESSION: Nonspecific slight linear lucencies are noted in the hallux and 2nd toe distal phalanges likely reflecting superimposition artifact from the adjacent soft tissues. Differential includes nondisplaced fractures in the appropriate clinical setting. Correlate for tenderness. Consider follow-up hallux and 2nd toe dedicated radiographs if appropriate
[2018-01-09] MEDS ORDERED: NACL 0.9% 1000 ML 1,000 ML IV ONE (18:33)
[2018-01-09] MEDS ORDERED: NORCO 5/325 PO ONE (18:39)
[2018-01-09 18:41] LABS: Bacteria,Urine 1+ /HPF (Negative); Bilirubin,Urine NEG (Negative); Blood,Urine NEG (Negative); Color,Urine Yellow (Yellow); Mucus,Urine FEW /HPF; Urobilinogen,Urine < 2.0 mg/dL (<2.0)
[2018-01-09] MEDS ORDERED: ROCEPHIN/NS 1 GM/50 ML 1 GM/50 ML BAG IV ONE (19:00)
[2018-01-09] MEDS ORDERED: NORVASC PO ONE (20:41)
[2018-01-09] MEDS ORDERED: PERCOCET 5/325 PO PRN (21:22)
[2018-01-09] MEDS ORDERED: DILAUDID IV PRN (21:22)
[2018-01-09] MEDS ORDERED: TYLENOL PO PRN (21:22)
[2018-01-09] MEDS ORDERED: ZOFRAN IV PRN (21:22)
[2018-01-09] MEDS ORDERED: SODIUM CHLORIDE FLUSH SYRINGE 10 ML IV PRN (21:22)
[2018-01-09] MEDS ORDERED: ZOFRAN ODT PO PRN (21:24)
[2018-01-09] MEDS ORDERED: MOTRIN PO PRN ×2 (21:24)
[2018-01-09] MEDS ORDERED: PROAIR IH PRN (21:24)
[2018-01-09] MEDS ORDERED: NON-FORMULARY (Acetaminophen [Tylenol Arthritis] 650 MG) PO PRN (21:24)
[2018-01-09] MEDS ORDERED: PROVENTIL IH PRN (21:33)
[2018-01-09] MEDS ORDERED: VANCOMYCIN 2,000 MG in NACL 0.9% 500 ML 500 ML IV ONE (22:00)
[2018-01-09] MEDS ORDERED: VANCOMYCIN PHARMACY TO DOSE IV SCH (22:00)
[2018-01-09] MEDS: PEPCID IV SCH (22:45)
[2018-01-09] MEDS: MORPHINE IV PRN (22:46)
[2018-01-09] MEDS: COREG PO SCH (22:47)
[2018-01-09] MEDS: NORVASC PO SCH (23:22)
[2018-01-09] MEDS: SODIUM CHLORIDE FLUSH SYRINGE 10 ML IV SCH (23:27)
[2018-01-10] MEDS: UNASYN/NS 3 GM/100 ML 3 GM/100 ML BAG IV SCH ×4 (01:00→17:30)
[2018-01-10] MEDS: MORPHINE IV PRN ×3 (03:42→21:47)
[2018-01-10] MEDS: PERCOCET 5/325 PO PRN (03:54)
--- NOTE | 2018-01-10 07:37 | History and Physical Report ---
History of Present Illness Date of examination: 01/09/18 Date of admission: 01/09/18 19:00 Chief complaint: CC Pain and swelling rt foot for 3 days History of present illness: History of Present Illness: 47 y/o Black male comes in for Dorsal right foot redness 5 days. History of gout and history of chronic joint pain .History of cocaine abuse here for evaluation of the aches worst pain was right foot seen 5 days ago apparently left to go to the urgent care, he denies chest pain he denies headache he denies stiff neck denies cough or fever. Pain is 04/14 Past Medical History Hx Hypertension: Yes (non compliant with meds) Hx Arthritis: Yes Additional medical history: GOUT. anemia, Hx of drug use Social History Smoking Status: Never Smoker Substance Use Type: None Surgical History Unavailable Fam Hx Htn Medications Home Medications: Home Medications Medication Instructions Recorded Confirmed Last Taken Type ALBUTEROL Inhaler [ProAir HFA 2 puff IH QID PRN #1 unit 05/18/16 Unknown Rx Inhaler] Amoxicillin/K Clav Tab [Augmentin 1 tab PO Q12HR #4 day 05/18/16 Unknown Rx 875 mg] guaiFENesin/CODEINE [Robitussin AC] 5 ml PO Q12H PRN #30 oral.liqd 05/18/16 Unknown Rx oxyCODONE /ACETAMINOPHEN [Percocet 1 tab PO Q6H PRN #30 tablet 05/18/16 Unknown Rx 5/325 mg] Carvedilol [Coreg] 12.5 mg PO BID #60 tablet 09/11/16 Unknown Rx Acetaminophen [Tylenol Arthritis] 650 mg PO Q6HR PRN #30 tablet.er 06/09/17 Unknown Rx Ibuprofen [Motrin] 600 mg PO Q8H PRN #30 tablet 06/09/17 Unknown Rx Ondansetron [Zofran Odt] 4 mg PO Q8HR PRN #20 tab.rapdis 06/09/17 Unknown Rx Ibuprofen [Motrin] 600 mg PO Q8H PRN #20 tablet 12/17/17 Unknown Rx Multivit-Mins/Iron/Folic/Lycop 1 each PO QDAY #1 bottle 12/17/17 Unknown Rx [Men Under 50 Multivitamin Tab] amLODIPine [Norvasc] 5 mg PO DAILY #30 tab 12/17/17 Unknown Rx Review of Systems ROS: Stated complaint: PAIN EVERY WHERE Other details as noted in HPI Comment: All other systems reviewed and negative Constitutional: malaise. denies: diaphoresis Eyes: denies: eye discharge, vision change ENT: denies: dental pain, hearing loss, epistaxis Respiratory: denies: cough, orthopnea, shortness of breath, SOB with exertion, SOB at rest, stridor Cardiovascular: denies: chest pain, palpitations, dyspnea on exertion, orthopnea , edema, syncope Gastrointestinal: denies: abdominal pain, nausea, vomiting, diarrhea, constipation, hematemesis, melena Musculoskeletal: joint swelling, arthralgia, myalgia Neurological: denies: headache, weakness, numbness, paresthesias, confusion, abnormal gait, vertigo Medications and Allergies Allergies Allergy/AdvReac Type Severity Reaction Status Date / Time No Known Allergies Allergy Verified 01/09/18 13:02 Home Medications Medication Instructions Recorded Confirmed Last Taken Type ALBUTEROL Inhaler [ProAir HFA 2 puff IH QID PRN #1 unit 05/18/16 01/09/18 Unknown Rx Inhaler] Amoxicillin/K Clav Tab [Augmentin 1 tab PO Q12HR #4 day 05/18/16 01/09/18 Unknown Rx 875 mg] guaiFENesin/CODEINE [Robitussin AC] 5 ml PO Q12H PRN #30 oral.liqd 05/18/1601/20 Unknown Rx oxyCODONE /ACETAMINOPHEN [Percocet 1 tab PO Q6H PRN #30 tablet 05/18/16 Unknown Rx 5/325 mg] Carvedilol [Coreg] 12.5 mg PO BID #60 tablet 09/11/16 01/09/18 Unknown Rx Acetaminophen [Tylenol Arthritis] 650 mg PO Q6HR PRN #30 tablet.er 06/09/1701/20 Unknown Rx Ibuprofen [Motrin] 600 mg PO Q8H PRN #30 tablet 06/09/17 01/09/18 Unknown Rx Ondansetron [Zofran Odt] 4 mg PO Q8HR PRN #20 tab.rapdis 06/09/17 01/09/18 Unknown Rx Ibuprofen [Motrin] 600 mg PO Q8H PRN #20 tablet 12/17/17 01/09/18 Unknown Rx Multivit-Mins/Iron/Folic/Lycop 1 each PO QDAY #1 bottle 12/17/17 01/09/18 Unknown Rx [Men Under 50 Multivitamin Tab] amLODIPine [Norvasc] 5 mg PO DAILY #30 tab 12/17/17 01/09/18 Unknown Rx Active Meds: Active Medications Acetaminophen (Tylenol) 650 mg PO Q4H PRN PRN Reason: Pain MILD(1-3)/Fever >100.5/BOUCHER Albuterol (Proventil) 2.5 mg IH Q4HRT PRN PRN Reason: Shortness Of Breath Amlodipine Besylate (Norvasc) 5 mg PO DAILY [facility] Last Admin: 01/09/18 23:22 Dose: 5 mg Carvedilol (Coreg) 12.5 mg PO BID [facility] Last Admin: 01/09/18 22:47 Dose: 12.5 mg Famotidine (Pepcid) 20 mg IV BID [facility] Last Admin: 01/09/18 22:45 Dose: 20 mg Hydromorphone HCl (Dilaudid) 0.5 mg IV Q3H PRN PRN Reason: Pain , Severe (7-10) Ampicillin Sodium/Sulbactam Sodium (Unasyn/Ns 3 Gm/100 Ml) 3 gm in 100 mls @ 100 mls/hr IV Q6HR [facility]; Protocol Last Admin: 01/10/18 05:56 Dose: 100 mls/hr Vancomycin HCl 1,750 mg/ (Sodium Chloride) 517.5 mls @ 333.333 mls/hr IV Q12H [facility] Ibuprofen (Motrin) 600 mg PO Q8H PRN PRN Reason: Pain Morphine Sulfate (Morphine) 2 mg IV Q4H PRN PRN Reason: Pain, Moderate (4-6) Last Admin: 01/10/18 03:42 Dose: 2 mg Ondansetron HCl (Zofran) 4 mg IV Q8H PRN PRN Reason: Nausea And Vomiting Ondansetron HCl (Zofran Odt) 4 mg PO Q8HR PRN PRN Reason: Nausea Oxycodone/Acetaminophen (Percocet 5/325) 1 tab PO Q6H PRN PRN Reason: Pain, Moderate (4-6) Last Admin: 01/10/18 03:54 Dose: 1 tab Sodium Chloride (Sodium Chloride Flush Syringe 10 Ml) 10 ml IV BID [facility] Last Admin: 01/09/18 23:27 Dose: 10 ml Sodium Chloride (Sodium Chloride Flush Syringe 10 Ml) 10 ml IV PRN PRN PRN Reason: LINE FLUSH Vancomycin HCl (Vancomycin Pharmacy To Dose) 1 each IV PKCONSULT [facility]ONA; Protocol Exam - Constitutional Vitals: Temp Pulse Resp BP Pulse Ox 97.8 F 62 18 116/69 98 01/10/18 04:58 01/10/18 04:58 01/10/18 04:58 01/10/18 04:58 01/10/18 04:58 General appearance: Present: mild distress, well-nourished - EENT Eyes: Present: PERRL ENT: hearing intact, clear oral mucosa - Neck Neck: Present: supple, normal ROM - Respiratory Respiratory effort: normal Respiratory: bilateral: CTA - Cardiovascular Heart rate: 78 Rhythm: regular Heart Sounds: Present: S1 & S2. Absent: rub, click - Extremities Extremities: no ischemia, pulses intact, pulses symmetrical, No edema Extremity abnormal: edema, erythema, other (Rt foot swollen and warm to touch.Also tender) Peripheral Pulses: within normal limits - Abdominal General gastrointestinal: Present: soft, non-tender, non-distended, normal bowel sounds Male genitourinary: Present: normal - Rectal Rectal Exam: deferred - Integumentary Integumentary: Present: clear, warm, dry - Musculoskeletal Musculoskeletal: gait normal, strength equal bilaterally - Psychiatric Psychiatric: appropriate mood/affect, intact judgment & insight - Neurologic Neurologic: CNII-XII intact, moves all extremities - Allied Health Allied health notes reviewed: nursing, case management Results - Labs CBC & Chem 7: 01/09/18 17:19 01/09/18 17:19 Labs: Laboratory Last Values WBC 16.9 K/mm3 (4.5-11.0) H 01/09/18 17:19 RBC 3.64 M/mm3 (3.65-5.03) L 01/09/18 17:19 Hgb 9.0 gm/dl (11.8-15.2) L 01/09/18 17:19 Hct 28.8 % (35.5-45.6) L 01/09/18 17:19 MCV 79 fl (84-94) L 01/09/18 17:19 MCH 25 pg (28-32) L 01/09/18 17:19 MCHC 31 % (32-34) L 01/09/18 17:19 RDW 17.7 % (13.2-15.2) H 01/09/18 17:19 Plt Count 596 K/mm3 (140-440) H 01/09/18 17:19 Lymph % (Auto) 12.0 % (13.4-35.0) L 01/09/18 17:19 Dale % (Auto) 7.4 % (0.0-7.3) H 01/09/18 17:19 Eos % (Auto) 0.5 % (0.0-4.3) 01/09/18 17:19 Baso % (Auto) 0.8 % (0.0-1.8) 01/09/18 17:19 Lymph # 2.0 K/mm3 (1.2-5.4) 01/09/18 17:19 Dale # 1.3 K/mm3 (0.0-0.8) H 01/09/18 17:19 Eos # 0.1 K/mm3 (0.0-0.4) 01/09/18 17:19 Baso # 0.1 K/mm3 (0.0-0.1) 01/09/18 17:19 Seg Neutrophils % 79.3 % (40.0-70.0) H 01/09/18 17:19 Seg Neutrophils # 13.4 K/mm3 (1.8-7.7) H 01/09/18 17:19 Sodium 139 mmol/L (137-145) 01/09/18 17:19 Potassium 4.4 mmol/L (3.6-5.0) 01/09/18 17:19 Chloride 102.0 mmol/L (98-107) 01/09/18 17:19 Carbon Dioxide 17 mmol/L (22-30) L 01/09/18 17:19 Anion Gap 24 mmol/L 01/09/18 17:19 BUN 22 mg/dL (9-20) H 01/09/18 17:19 Creatinine 1.6 mg/dL (0.8-1.5) H 01/09/18 17:19 Estimated GFR 56 ml/min 01/09/18 17:19 BUN/Creatinine Ratio 14 % 01/09/18 17:19 Glucose 89 mg/dL (75-100) 01/09/18 17:19 Hemoglobin A1c 6.6 % (4-6) H 01/09/18 17:19 Calcium 9.6 mg/dL (8.4-10.2) 01/09/18 17:19 Total Bilirubin 0.30 mg/dL (0.1-1.2) 01/09/18 17:19 AST 15 units/L (5-40) 01/09/18 17:19 ALT 15 units/L (7-56) 01/09/18 17:19 Alkaline Phosphatase 99 units/L (35-129) 01/09/18 17:19 Total Creatine Kinase 241 units/L (55-170) H 01/09/18 17:19 Troponin T < 0.010 ng/mL (0.00-0.029) 01/09/18 17:19 Total Protein 9.3 g/dL (6.3-8.2) H 01/09/18 17:19 Albumin 3.9 g/dL (3.9-5) 01/09/18 17:19 Albumin/Globulin Ratio 0.7 % 01/09/18 17:19 Urine Color Yellow (Yellow) 01/09/18 18:15 Urine Turbidity Clear (Clear) 01/09/18 18:15 Urine pH 5.0 (5.0-7.0) 01/09/18 18:15 Ur Specific Castella 1.016 (1.003-1.030) 01/09/18 18:15 Urine Protein 30 mg/dl mg/dL (Negative) 01/09/18 18:15 Urine Glucose (UA) Neg mg/dL (Negative) 01/09/18 18:15 Urine Ketones Neg mg/dL (Negative) 01/09/18 18:15 Urine Blood Neg (Negative) 01/09/18 18:15 Urine Nitrite Neg (Negative) 01/09/18 18:15 Urine Bilirubin Neg (Negative) 01/09/18 18:15 Urine Urobilinogen < 2.0 mg/dL (<2.0) 01/09/18 18:15 Ur Leukocyte Esterase Neg (Negative) 01/09/18 18:15 Urine WBC (Auto) 2.0 /HPF (0.0-6.0) 01/09/18 18:15 Urine RBC (Auto) 4.0 /HPF (0.0-6.0) 01/09/18 18:15 U Epithel Cells (Auto) 1.0 /HPF (0-13.0) 01/09/18 18:15 Urine Bacteria (Auto) 1+ /HPF (Negative) 01/09/18 18:15 Urine Mucus Few /HPF 01/09/18 18:15 - Imaging and Cardiology EKG: report reviewed Imaging and Cardiology: Rt Foot xray IMPRESSION: Nonspecific slight linear lucencies are noted in the hallux and 2nd toe distal phalanges likely reflecting superimposition artifact from the adjacent soft tissues. Differential includes nondisplaced fractures in the appropriate clinical setting. Correlate for tenderness. Consider follow-up hallux and 2nd toe dedicated radiographs if appropriate Assessment and Plan Advance Directives: Yes (Full code) VTE prophylaxis?: Chemical Plan of care discussed with patient/family: Yes - Patient Problems (1) Cellulitis and abscess of foot Current Visit: Yes Status: Acute Plan to address problem: Patient initiated on IV Unasyn and Vancomycin (2) Gout attack Current Visit: No Status: Acute Qualifiers: Gout site: foot Gout etiology: unspecified cause Qualified Code(s): M10.9 - Gout, unspecified Plan to address problem: Acute gout in Differential diagnosis Colchicine and Prednisone initiated (3) HTN (hypertension) Current Visit: Yes Status: Chronic Qualifiers: Hypertension type: essential hypertension Qualified Code(s): I10 - Essential (primary) hypertension Plan to address problem: Cont antihypertensives (4) Asthma Current Visit: Yes Status: Inactive Qualifiers: Asthma severity: mild Plan to address problem: Albuterol prn (5) Arthritis Current Visit: Yes Status: Acute Plan to address problem: on NSAids (6) DVT prophylaxis Current Visit: No Status: Acute Plan to address problem: Heparin 5000 sq q12 h
[2018-01-10] MEDS: COREG PO SCH ×2 (09:18→21:48)
[2018-01-10] MEDS: DELTASONE PO SCH (09:18)
[2018-01-10] MEDS: NORVASC PO SCH (09:19)
[2018-01-10] MEDS: PEPCID IV SCH ×2 (09:19→21:47)
[2018-01-10] MEDS: SODIUM CHLORIDE FLUSH SYRINGE 10 ML IV SCH ×2 (09:19→21:48)
[2018-01-10] MEDS: COLCHICINE PO SCH ×2 (11:16→21:47)
[2018-01-10 11:31] LABS: Basophils # (Auto) 0.1 K/mm3 (0.0-0.1); Basophils % (Auto) 0.5 % (0.0-1.8); Eosinophils # (Auto) 0.1 K/mm3 (0.0-0.4); Eosinophils % (Auto) 0.6 % (0.0-4.3); Hemoglobin 7.6 gm/dl (11.8-15.2); Lymphocytes # (Auto) 1.6 K/mm3 (1.2-5.4); Lymphocytes % (Auto) 10.1 % (13.4-35.0); Mean Corpuscular HGB Conc 32 % (32-34); Mean Corpuscular Volume 79 fl (84-94); Monocytes # (Auto) 1.6 K/mm3 (0.0-0.8); Monocytes % (Auto) 10.5 % (0.0-7.3); Platelet Count 547 K/mm3 (140-440); Red Blood Count 3.04 M/mm3 (3.65-5.03); Red Cell Distribution Width 17.4 % (13.2-15.2)
[2018-01-10 11:32] LABS: Mean Corpuscular Hemoglobin 25 pg (28-32)
[2018-01-10] MEDS: VANCOMYCIN 1,750 MG in NACL 0.9% 500 ML 500 ML IV SCH (12:21)
[2018-01-10 12:32] LABS: Alanine Aminotransferase 13 units/L (7-56); Albumin 2.9 g/dL (3.9-5); BUN/Creatinine Ratio 15; Blood Urea Nitrogen 20 mg/dL (9-20); Calcium 8.9 mg/dL (8.4-10.2); Hemolysis Index 10
[2018-01-11] MEDS: VANCOMYCIN 1,750 MG in NACL 0.9% 500 ML 500 ML IV SCH ×2 (00:04→14:17)
[2018-01-11] MEDS: UNASYN/NS 3 GM/100 ML 3 GM/100 ML BAG IV SCH ×5 (00:04→23:54)
[2018-01-11] MEDS: MORPHINE IV PRN (05:50)
--- NOTE | 2018-01-11 07:10 | Event Note ---
Date: 01/11/18 I was alerted by our coordinator that patient was not assigned to a physician yesterday and was therefore not seen. Will see the patient today.
--- NOTE | 2018-01-11 07:44 | Progress Note ---
Assessment and Plan Assessment and plan: 47 y/o Black male comes in for Dorsal right foot redness 5 days. History of gout and history of chronic joint pain .History of cocaine abuse here for evaluation of the aches worst pain was right foot seen 5 days ago apparently left to go to the urgent Past Medical History; htn, gouty arthritis, anemia, cocaine abuse Cellulitis of Right foot? unclear if infected, get CT LE, check esr and crp Patient initiated on IV Unasyn and Vancomycin Gout attack Acute gout in Differential diagnosis Colchicine and Prednisone initiated JOLENE -vasomotor nephropathy improved with IVF, dc nsaids HTN (hypertension) Cont antihypertensives Asthma Albuterol prn Arthritis on NSAids DVT prophylaxis Heparin 5000 sq q12 h History Interval history: c/o r foot swelling and pain, pain in right hand, left shoulder and both elbows , all are hot, swollen and painful Review of systems Constitutional: No fevers, no malaise, no joint pains CVS: No chest pain, no orthopnea, no dyspnea on exertion, no pedal edema GI: No abdominal pain, no diarrhea, no vomiting, no constipation Respiratory: No shortness of breath, no wheezing, no coughing Hospitalist Physical - Physical exam Narrative exam: General.: Appears well, no distress, nontoxic HEENT: Moist mucous membranes, extraocular muscles intact, no lymphadenopathy Neck: supple Cardiac: S1-S2 heard Lungs: clear to auscultation bilaterally Abdomen: soft , nontender, nondistended, bowel sounds positive Extremities: marked edema and tenderness in R foot, tenderness of right hand, both elbows and left shoulder Skin: no rash or lesions Neurologic: no gross focal deficits Psych: appropriate behavior, appropriate mood, corporative, judgment intact - Constitutional Vitals: Temp Pulse Resp BP Pulse Ox 98.6 F 62 18 117/75 97 01/11/18 05:17 01/11/18 05:17 01/11/18 05:50 01/11/18 05:17 01/11/18 05:17 General appearance: Present: mild distress, well-nourished Results - Labs CBC & Chem 7: 01/10/18 11:25 01/10/18 11:25 Labs: Laboratory Last Values WBC 15.7 K/mm3 (4.5-11.0) H 01/10/18 11:25 RBC 3.04 M/mm3 (3.65-5.03) L 01/10/18 11:25 Hgb 7.6 gm/dl (11.8-15.2) L 01/10/18 11:25 Hct 24.0 % (35.5-45.6) L 01/10/18 11:25 MCV 79 fl (84-94) L 01/10/18 11:25 MCH 25 pg (28-32) L 01/10/18 11:25 MCHC 32 % (32-34) 01/10/18 11:25 RDW 17.4 % (13.2-15.2) H 01/10/18 11:25 Plt Count 547 K/mm3 (140-440) H 01/10/18 11:25 Lymph % (Auto) 10.1 % (13.4-35.0) L 01/10/18 11:25 [place] % (Auto) 10.5 % (0.0-7.3) H 01/10/18 11:25 Eos % (Auto) 0.6 % (0.0-4.3) 01/10/18 11:25 Baso % (Auto) 0.5 % (0.0-1.8) 01/10/18 11:25 Lymph # 1.6 K/mm3 (1.2-5.4) 01/10/18 11:25 [place] # 1.6 K/mm3 (0.0-0.8) H 01/10/18 11:25 Eos # 0.1 K/mm3 (0.0-0.4) 01/10/18 11:25 Baso # 0.1 K/mm3 (0.0-0.1) 01/10/18 11:25 Seg Neutrophils % 78.3 % (40.0-70.0) H 01/10/18 11:25 Seg Neutrophils # 12.3 K/mm3 (1.8-7.7) H 01/10/18 11:25 Sodium 139 mmol/L (137-145) 01/09/18 17:19 Potassium 4.4 mmol/L (3.6-5.0) 01/09/18 17:19 Chloride 102.0 mmol/L (98-107) 01/09/18 17:19 Carbon Dioxide 16 mmol/L (22-30) L 01/10/18 11:25 Anion Gap 24 mmol/L 01/09/18 17:19 BUN 20 mg/dL (9-20) 01/10/18 11:25 Creatinine 1.3 mg/dL (0.8-1.5) 01/10/18 11:25 Estimated GFR > 60 ml/min 01/10/18 11:25 BUN/Creatinine Ratio 15 % 01/10/18 11:25 Glucose 96 mg/dL (75-100) 01/10/18 11:25 Hemoglobin A1c 6.6 % (4-6) H 01/09/18 17:19 Calcium 8.9 mg/dL (8.4-10.2) 01/10/18 11:25 Total Bilirubin 0.20 mg/dL (0.1-1.2) 01/10/18 11:25 AST 13 units/L (5-40) 01/10/18 11:25 ALT 13 units/L (7-56) 01/10/18 11:25 Alkaline Phosphatase 84 units/L (35-129) 01/10/18 11:25 Total Creatine Kinase 241 units/L (55-170) H 01/09/18 17:19 Troponin T < 0.010 ng/mL (0.00-0.029) 01/09/18 17:19 Total Protein 7.7 g/dL (6.3-8.2) 01/10/18 11:25 Albumin 2.9 g/dL (3.9-5) L 01/10/18 11:25 Albumin/Globulin Ratio 0.6 % 01/10/18 11:25 Urine Color Yellow (Yellow) 01/09/18 18:15 Urine Turbidity Clear (Clear) 01/09/18 18:15 Urine pH 5.0 (5.0-7.0) 01/09/18 18:15 Ur Specific [place] 1.016 (1.003-1.030) 01/09/18 18:15 Urine Protein 30 mg/dl mg/dL (Negative) 01/09/18 18:15 Urine Glucose (UA) Neg mg/dL (Negative) 01/09/18 18:15 Urine Ketones Neg mg/dL (Negative) 01/09/18 18:15 Urine Blood Neg (Negative) 01/09/18 18:15 Urine Nitrite Neg (Negative) 01/09/18 18:15 Urine Bilirubin Neg (Negative) 01/09/18 18:15 Urine Urobilinogen < 2.0 mg/dL (<2.0) 01/09/18 18:15 Ur Leukocyte Esterase Neg (Negative) 01/09/18 18:15 Urine WBC (Auto) 2.0 /HPF (0.0-6.0) 01/09/18 18:15 Urine RBC (Auto) 4.0 /HPF (0.0-6.0) 01/09/18 18:15 U Epithel Cells (Auto) 1.0 /HPF (0-13.0) 01/09/18 18:15 Urine Bacteria (Auto) 1+ /HPF (Negative) 01/09/18 18:15 Urine Mucus Few /HPF 01/09/18 18:15
[2018-01-11] MEDS: PEPCID IV SCH (10:00)
[2018-01-11] MEDS: DELTASONE PO SCH (10:56)
[2018-01-11] MEDS: PEPCID PO SCH ×2 (10:56→21:09)
[2018-01-11] MEDS: COREG PO SCH ×2 (10:56→21:09)
[2018-01-11] MEDS: COLCHICINE PO SCH ×2 (10:56→21:09)
[2018-01-11] MEDS: NORVASC PO SCH (10:57)
[2018-01-11] MEDS: SODIUM CHLORIDE FLUSH SYRINGE 10 ML IV SCH ×2 (10:58→21:10)
[2018-01-11] MEDS ORDERED: NORVASC PO ONE (21:00)
--- NOTE | 2018-01-11 22:37 | Cat Scan Report ---
FINAL REPORT PROCEDURE: CT right lower extremity with contrast. TECHNIQUE: Computerized axial tomography of the RIGHT calf, ankle and foot was performed after the IV injection of iodinated nonionic contrast. HISTORY: Right foot pain/swelling concern for Osteomylitis COMPARISON: No prior studies are available for comparison. FINDINGS: The bones appear intact without fracture. There is no evidence of osteomyelitis. The joint spaces appear satisfactory. The soft tissues are unremarkable. IMPRESSION: No significant abnormality.
[2018-01-12] MEDS: VANCOMYCIN 1,750 MG in NACL 0.9% 500 ML 500 ML IV SCH ×2 (00:58→12:44)
[2018-01-12] MEDS: UNASYN/NS 3 GM/100 ML 3 GM/100 ML BAG IV SCH ×3 (06:18→18:00)
[2018-01-12] MEDS: PERCOCET 5/325 PO PRN ×3 (06:18→22:27)
[2018-01-12 06:48] LABS: Basophils # (Auto) 0.1 K/mm3 (0.0-0.1); Basophils % (Auto) 0.8 % (0.0-1.8); Eosinophils % (Auto) 0.3 % (0.0-4.3); Hematocrit 26.3 % (35.5-45.6); Hemoglobin 8.6 gm/dl (11.8-15.2); Lymphocytes # (Auto) 2.2 K/mm3 (1.2-5.4); Mean Corpuscular HGB Conc 33 % (32-34); Mean Corpuscular Volume 79 fl (84-94); Monocytes # (Auto) 0.8 K/mm3 (0.0-0.8); Monocytes % (Auto) 5.4 % (0.0-7.3); Platelet Count 554 K/mm3 (140-440); Red Blood Count 3.35 M/mm3 (3.65-5.03); Red Cell Distribution Width 17.6 % (13.2-15.2)
[2018-01-12 06:52] LABS: Mean Corpuscular Hemoglobin 26 pg (28-32)
[2018-01-12 07:21] LABS: Alanine Aminotransferase 21 units/L (7-56); Albumin 3.3 g/dL (3.9-5); BUN/Creatinine Ratio 14; Blood Urea Nitrogen 18 mg/dL (9-20); Calcium 9.5 mg/dL (8.4-10.2); Hemolysis Index 3
[2018-01-12] MEDS: PEPCID PO SCH ×2 (11:14→22:28)
[2018-01-12] MEDS: COLCHICINE PO SCH ×2 (11:14→22:28)
[2018-01-12] MEDS: DELTASONE PO SCH (11:14)
[2018-01-12] MEDS: NORVASC PO SCH (11:15)
[2018-01-12] MEDS: SODIUM CHLORIDE FLUSH SYRINGE 10 ML IV SCH ×2 (11:15→22:31)
[2018-01-12] MEDS: COREG PO SCH ×2 (11:15→22:28)
--- NOTE | 2018-01-12 14:46 | Magnetic Resonance Report ---
FINAL REPORT EXAM: MR HARPER NONJOINT RT WO/W CON HISTORY: swelling and pain in right foot, Fracture? on XR? TECHNIQUE: Multiplanar MRI of the right foot. No contrast administered. PRIORS: Right foot radiographs, 09 January 2018. Right lower extremity CT, 11 January 2018. FINDINGS: Considerable degenerative change in the midfoot, primarily navicular-cuneiform, 2nd and 3rd TMT joints, which demonstrate subchondral cystic change and spurring, as well as patchy or heterogeneous bone marrow edema possibly reactive. Mild, heterogeneous enhancement on post gadolinium images. Less severe degenerative change in the 4th and 5th TMT joints, without associated bone marrow edema. More diffuse soft tissue edema in the dorsal midfoot, also with heterogeneous enhancement on post gadolinium sequences. No discrete, ring-enhancing or loculated fluid collection. Small tibiotalar joint effusion. Remainder of bone marrow signal intensity within normal limits. No occult fracture or other osseous abnormality. Os trigonum incidentally noted. Flexor and extensor tendons appear grossly intact. Lisfranc ligament and joint grossly intact. Remainder of soft tissues grossly unremarkable. IMPRESSION: 1. Considerable degenerative change in the midfoot, with associated bone marrow edema and overlying soft tissue edema may be reactive secondary to osteoarthrosis or erosive arthritide. Differential diagnosis also includes nonspecific infectious or inflammatory process, including cellulitis and osteomyelitis or early neuropathic joint changes. Posttraumatic change also consideration, although no discrete or occult fracture clearly identified. Exact etiology or significance uncertain, and clinical correlation along with followup suggested.
--- NOTE | 2018-01-12 15:58 | Progress Note ---
Assessment and Plan Assessment and plan: 47 y/o Black male comes in for Dorsal right foot redness 5 days. History of gout and history of chronic joint pain .History of cocaine abuse here for evaluation of the aches worst pain was right foot seen 5 days ago apparently left to go to the urgent Past Medical History; htn, gouty arthritis, anemia, cocaine abuse Cellulitis of Right foot ruled out, clinical presentation is cw gouty arthritis and not infection CT and MRI cw with inflammation dc abx, continue colchicine and prednisone Gout attack Acute gout in Differential diagnosis Colchicine and Prednisone initiated JOLENE -vasomotor nephropathy improved with IVF, dc nsaids HTN (hypertension) Cont antihypertensives Asthma Albuterol prn Arthritis on NSAids DVT prophylaxis Heparin 5000 sq q12 h History Interval history: c/o r foot swelling and pain, pain in right hand, left shoulder and both elbows , all are hot, swollen and painful, but is improved since admission Review of systems Constitutional: No fevers, no malaise, no joint pains CVS: No chest pain, no orthopnea, no dyspnea on exertion, no pedal edema GI: No abdominal pain, no diarrhea, no vomiting, no constipation Respiratory: No shortness of breath, no wheezing, no coughing Hospitalist Physical - Physical exam Narrative exam: General.: Appears well, no distress, nontoxic HEENT: Moist mucous membranes, extraocular muscles intact, no lymphadenopathy Neck: supple Cardiac: S1-S2 heard Lungs: clear to auscultation bilaterally Abdomen: soft , nontender, nondistended, bowel sounds positive Extremities: edema and tenderness in R foot is improved, tenderness of right hand, both elbows and left shoulder Skin: no rash or lesions Neurologic: no gross focal deficits Psych: appropriate behavior, appropriate mood, corporative, judgment intact - Constitutional Vitals: Temp Pulse Resp BP Pulse Ox 97.7 F 61 18 157/89 100 01/12/18 11:26 01/12/18 11:26 01/12/18 11:26 01/12/18 11:26 01/12/18 11:26 General appearance: Present: mild distress, well-nourished Results - Labs CBC & Chem 7: 01/12/18 06:13 01/12/18 06:13 Labs: Laboratory Last Values WBC 14.4 K/mm3 (4.5-11.0) H 01/12/18 06:13 RBC 3.35 M/mm3 (3.65-5.03) L 01/12/18 06:13 Hgb 8.6 gm/dl (11.8-15.2) L 01/12/18 06:13 Hct 26.3 % (35.5-45.6) L 01/12/18 06:13 MCV 79 fl (84-94) L 01/12/18 06:13 MCH 26 pg (28-32) L 01/12/18 06:13 MCHC 33 % (32-34) 01/12/18 06:13 RDW 17.6 % (13.2-15.2) H 01/12/18 06:13 Plt Count 554 K/mm3 (140-440) H 01/12/18 06:13 Lymph % (Auto) 15.0 % (13.4-35.0) 01/12/18 06:13 [place] % (Auto) 5.4 % (0.0-7.3) 01/12/18 06:13 Eos % (Auto) 0.3 % (0.0-4.3) 01/12/18 06:13 Baso % (Auto) 0.8 % (0.0-1.8) 01/12/18 06:13 Lymph # 2.2 K/mm3 (1.2-5.4) 01/12/18 06:13 [place] # 0.8 K/mm3 (0.0-0.8) 01/12/18 06:13 Eos # 0.0 K/mm3 (0.0-0.4) 01/12/18 06:13 Baso # 0.1 K/mm3 (0.0-0.1) 01/12/18 06:13 Seg Neutrophils % 78.5 % (40.0-70.0) H 01/12/18 06:13 Seg Neutrophils # 11.3 K/mm3 (1.8-7.7) H 01/12/18 06:13 Sodium 139 mmol/L (137-145) 01/12/18 06:13 Potassium 4.1 mmol/L (3.6-5.0) 01/12/18 06:13 Chloride 104.2 mmol/L (98-107) 01/12/18 06:13 Carbon Dioxide 18 mmol/L (22-30) L 01/12/18 06:13 Anion Gap 21 mmol/L 01/12/18 06:13 BUN 18 mg/dL (9-20) 01/12/18 06:13 Creatinine 1.3 mg/dL (0.8-1.5) 01/12/18 06:13 Estimated GFR > 60 ml/min 01/12/18 06:13 BUN/Creatinine Ratio 14 % 01/12/18 06:13 Glucose 128 mg/dL (75-100) H 01/12/18 06:13 Hemoglobin A1c 6.6 % (4-6) H 01/09/18 17:19 Uric Acid 9.9 mg/dL (3.5-7.6) H 01/11/18 20:05 Calcium 9.5 mg/dL (8.4-10.2) 01/12/18 06:13 Phosphorus 2.60 mg/dL (2.5-4.5) 01/12/18 06:13 Magnesium 1.80 mg/dL (1.7-2.3) 01/12/18 06:13 Total Bilirubin < 0.20 mg/dL (0.1-1.2) 01/12/18 06:13 AST 31 units/L (5-40) 01/12/18 06:13 ALT 21 units/L (7-56) 01/12/18 06:13 Alkaline Phosphatase 82 units/L (35-129) 01/12/18 06:13 Total Creatine Kinase 241 units/L (55-170) H 01/09/18 17:19 Troponin T < 0.010 ng/mL (0.00-0.029) 01/09/18 17:19 Total Protein 8.1 g/dL (6.3-8.2) 01/12/18 06:13 Albumin 3.3 g/dL (3.9-5) L 01/12/18 06:13 Albumin/Globulin Ratio 0.7 % 01/12/18 06:13 Urine Color Yellow (Yellow) 01/09/18 18:15 Urine Turbidity Clear (Clear) 01/09/18 18:15 Urine pH 5.0 (5.0-7.0) 01/09/18 18:15 Ur Specific [place] 1.016 (1.003-1.030) 01/09/18 18:15 Urine Protein 30 mg/dl mg/dL (Negative) 01/09/18 18:15 Urine Glucose (UA) Neg mg/dL (Negative) 01/09/18 18:15 Urine Ketones Neg mg/dL (Negative) 01/09/18 18:15 Urine Blood Neg (Negative) 01/09/18 18:15 Urine Nitrite Neg (Negative) 01/09/18 18:15 Urine Bilirubin Neg (Negative) 01/09/18 18:15 Urine Urobilinogen < 2.0 mg/dL (<2.0) 01/09/18 18:15 Ur Leukocyte Esterase Neg (Negative) 01/09/18 18:15 Urine WBC (Auto) 2.0 /HPF (0.0-6.0) 01/09/18 18:15 Urine RBC (Auto) 4.0 /HPF (0.0-6.0) 01/09/18 18:15 U Epithel Cells (Auto) 1.0 /HPF (0-13.0) 01/09/18 18:15 Urine Bacteria (Auto) 1+ /HPF (Negative) 01/09/18 18:15 Urine Mucus Few /HPF 01/09/18 18:15
[2018-01-13] MEDS: UNASYN/NS 3 GM/100 ML 3 GM/100 ML BAG IV SCH (02:04)
[2018-01-13] MEDS: VANCOMYCIN 1,750 MG in NACL 0.9% 500 ML 500 ML IV SCH (03:14)
[2018-01-13] MEDS: COREG PO SCH ×2 (10:13→22:39)
[2018-01-13] MEDS: PEPCID PO SCH ×2 (10:15→22:38)
[2018-01-13] MEDS: DELTASONE PO SCH (10:15)
[2018-01-13] MEDS: COLCHICINE PO SCH ×2 (10:16→22:38)
[2018-01-13] MEDS: NORVASC PO SCH (10:16)
[2018-01-13] MEDS: SODIUM CHLORIDE FLUSH SYRINGE 10 ML IV SCH ×2 (10:17→22:40)
--- NOTE | 2018-01-13 11:55 | Progress Note ---
Assessment and Plan 47 y/o Black male comes in for Dorsal right foot redness 5 days. History of gout and history of chronic joint pain .History of cocaine abuse here for evaluation of the aches worst pain was right foot seen 5 days ago apparently left to go to the urgent Past Medical History; htn, gouty arthritis, anemia, cocaine abuse Cellulitis of Right foot ruled out, clinical presentation is cw gouty arthritis and not infection CT and MRI cw with inflammation dc abx, continue colchicine and prednisone Gout attack Acute gout in Differential diagnosis Colchicine and Prednisone initiated JOLENE -vasomotor nephropathy improved with IVF, dc nsaids HTN (hypertension) Cont antihypertensives Asthma Albuterol prn Arthritis on NSAids Diabetes mellitus with A1c of 6.6 Sliding-scale insulin Consistent collided diet DVT prophylaxis Heparin 5000 sq q12 h Subjective Date of service: 01/13/18 Principal diagnosis: acute kidney injury, cellulitis of right foot, gouty adenopathy Interval history: Patient seen and examined. In no acute distress. Reviewed laboratory data Objective - Exam Narrative Exam: Constitutional: Well-nourished well-developed. In no distress Head: Normocephalic atraumatic Eyes: Pupils are equal round and reactive to light Nose: No enlarged turbinates, no septal deviation. Mouth: Moist mucous membranes. Neck: Supple no thyromegaly. No bruit. No JVD Heart: Regular rate and rhythm, S1-S2 abnormal. No rubs murmurs or gallop Lungs: Clear to auscultation bilaterally no rales or rhonchi Abdomen: Soft, nontender. Bowel sound are present. Extremities: Dry dressing on the right foot. Neuro: Alert oriented Oriented x3. No focal sensory or motor deficit. Skin: No rashes no hyperemic spots Psychiatry: Euthymic. Calm. - Constitutional Vitals: Vital Signs - 12hr 01/13/18 01/13/18 01/13/18 06:04 10:13 10:16 Temperature 97.5 F L Pulse Rate 49 L 56 L 56 L Respiratory 18 Rate Blood Pressure 146/87 145/84 145/84 O2 Sat by Pulse 100 Oximetry 01/13/18 10:56 Temperature 98.1 F Pulse Rate 58 L Respiratory 20 Rate Blood Pressure 159/90 O2 Sat by Pulse 97 Oximetry - EENT Ears: bilateral: normal - Neck Neck: supple, normal ROM - Respiratory Respiratory effort: normal Respiratory: bilateral: CTA - Breasts Breasts: normal - Cardiovascular Rhythm: regular Heart Sounds: Present: S1 & S2. Absent: gallop, rub Extremities: pulses intact, No edema, normal color, Full ROM - Gastrointestinal General gastrointestinal: Present: soft, non-tender, non-distended, normal bowel sounds - Genitourinary Male genitourinary: normal - Integumentary Integumentary: clear, warm, dry - Musculoskeletal Musculoskeletal: 1, strength equal bilaterally - Neurologic Neurologic: moves all extremities - Psychiatric Psychiatric: memory intact, appropriate mood/affect, intact judgment & insight - Labs CBC & Chem 7: 01/12/18 06:13 01/12/18 06:13
[2018-01-13] MEDS: PERCOCET 5/325 PO PRN (16:29)
[2018-01-13] MEDS ORDERED: D50W (25GM) Syringe IV PRN (20:23)
[2018-01-13] MEDS ORDERED: ROBITUSSIN AC PO PRN (20:24)
[2018-01-13] MEDS ORDERED: MULTIVIT MINS PO SCH (20:30)
[2018-01-13] MEDS ORDERED: LYCOP PO SCH (20:30)
[2018-01-13] MEDS ORDERED: FOLIC PO SCH (20:30)
[2018-01-13] MEDS ORDERED: IRON PO SCH (20:30)
[2018-01-13] MEDS: AUGMENTIN 875 MG PO SCH (22:39)
[2018-01-13] MEDS: THERAGRAN-M Tab PO SCH (22:39)
[2018-01-14] MEDS: HumaLOG SUB-Q SCH ×5 (01:17→22:05)
[2018-01-14] MEDS: PEPCID PO SCH ×2 (10:50→22:39)
[2018-01-14] MEDS: NORVASC PO SCH (10:50)
[2018-01-14] MEDS: COLCHICINE PO SCH ×2 (10:50→22:39)
[2018-01-14] MEDS: DELTASONE PO SCH (10:50)
[2018-01-14] MEDS: SODIUM CHLORIDE FLUSH SYRINGE 10 ML IV SCH ×2 (10:51→22:39)
[2018-01-14] MEDS: AUGMENTIN 875 MG PO SCH ×2 (10:51→22:39)
[2018-01-14] MEDS: COREG PO SCH ×2 (10:51→22:39)
[2018-01-14] MEDS: THERAGRAN-M Tab PO SCH (10:51)
--- NOTE | 2018-01-14 11:02 | Progress Note ---
Assessment and Plan 47 y/o Black male comes in for Dorsal right foot redness 5 days. History of gout and history of chronic joint pain .History of cocaine abuse here for evaluation of the aches worst pain was right foot seen 5 days ago apparently left to go to the urgent Past Medical History; htn, gouty arthritis, anemia, cocaine abuse Cellulitis of Right foot ruled out, clinical presentation is cw gouty arthritis and not infection CT and MRI cw with inflammation dc abx, continue colchicine and prednisone Gout attack Acute gout in Differential diagnosis Colchicine and Prednisone initiated JOLENE -vasomotor nephropathy improved with IVF, dc nsaids HTN (hypertension) Cont antihypertensives Asthma Albuterol prn Arthritis on NSAids Diabetes mellitus with A1c of 6.6 Sliding-scale insulin Consistent collided diet DVT prophylaxis Heparin 5000 sq q12 h Subjective Date of service: 01/14/18 Principal diagnosis: acute kidney injury, cellulitis of right foot, gouty adenopathy Interval history: Patient seen and examined. In no acute distress. Reviewed laboratory data Objective - Exam Narrative Exam: Constitutional: Well-nourished well-developed. In no distress Head: Normocephalic atraumatic Eyes: Pupils are equal round and reactive to light Nose: No enlarged turbinates, no septal deviation. Mouth: Moist mucous membranes. Neck: Supple no thyromegaly. No bruit. No JVD Heart: Regular rate and rhythm, S1-S2 abnormal. No rubs murmurs or gallop Lungs: Clear to auscultation bilaterally no rales or rhonchi Abdomen: Soft, nontender. Bowel sound are present. Extremities: Dry dressing on the right foot. Neuro: Alert oriented Oriented x3. No focal sensory or motor deficit. Skin: No rashes no hyperemic spots Psychiatry: Euthymic. Calm. - Constitutional Vitals: Vital Signs - 12hr 01/13/18 01/14/18 01/14/18 23:35 05:43 10:44 Temperature 98.3 F 97.2 F L Pulse Rate 64 58 L Respiratory 20 20 Rate Blood Pressure 169/100 143/86 163/95 O2 Sat by Pulse 99 98 Oximetry 01/14/18 10:54 Temperature Pulse Rate 58 L Respiratory Rate Blood Pressure O2 Sat by Pulse Oximetry - Labs CBC & Chem 7: 01/12/18 06:13 01/12/18 06:13
[2018-01-14] MEDS: PERCOCET 5/325 PO PRN (14:36)
[2018-01-15] MEDS: HumaLOG SUB-Q SCH ×3 (08:38→17:42)
[2018-01-15] MEDS: PERCOCET 5/325 PO PRN (09:53)
[2018-01-15] MEDS: NORVASC PO SCH (09:57)
[2018-01-15] MEDS: COREG PO SCH (09:57)
[2018-01-15] MEDS: PEPCID PO SCH (09:57)
[2018-01-15] MEDS: DELTASONE PO SCH (09:57)
[2018-01-15] MEDS: THERAGRAN-M Tab PO SCH (09:57)
[2018-01-15] MEDS: AUGMENTIN 875 MG PO SCH (09:57)
[2018-01-15] MEDS: SODIUM CHLORIDE FLUSH SYRINGE 10 ML IV SCH (09:58)
--- NOTE | 2018-01-15 09:59 | Discharge Summary ---
Providers - Providers Date of Admission: 01/09/18 19:00 Date of discharge: 01/15/18 Attending physician: NORA DEWITT 01/12/18 16:09 Physical Therapy Evaluation and Treat [CONS] Routine Comment: eval and treat Reason For Exam: ataxia Primary care physician: GERM DRIER Hospitalization Condition: Stable Hospital course: 47 y/o Black male comes in for Dorsal right foot redness 5 days. History of gout and history of chronic joint pain .History of cocaine abuse here for evaluation of the aches worst pain was right foot seen 5 days ago apparently left to go to the urgent care, he denies chest pain he denies headache he denies stiff neck denies cough or fever. Pain is 10/10 Exam - Constitutional Vitals: Temp Pulse Resp BP Pulse Ox 98.1 F 54 L 15 133/87 98 01/15/18 06:32 01/15/18 06:32 01/15/18 06:32 01/15/18 06:32 01/15/18 06:32 Plan Follow up with: PRIMARY CARE, [Primary Care Provider] - 3-5 Days Prescriptions: ALBUTEROL Inhaler [ProAir HFA Inhaler] 2 puff IH QID PRN #1 unit PRN Reason: Shortness Of Breath ALBUTEROL NEB's [Proventil 0.083% NEBS] 2.5 mg IH Q4HRT PRN #100 nebu PRN Reason: Shortness Of Breath amLODIPine [Norvasc] 10 mg PO QDAY #30 tablet amLODIPine [Norvasc] 5 mg PO DAILY #30 tab Amoxicillin/K Clav Tab [Augmentin 875MG TAB] 1 tab PO Q12HR #10 day Carvedilol [Coreg] 12.5 mg PO BID #60 tablet Colchicine 0.6 mg PO BID #60 capsule Famotidine [Pepcid] 20 mg PO BID #60 tablet Ibuprofen [Motrin 600 MG tab] 600 mg PO Q8H PRN #30 tablet PRN Reason: Pain oxyCODONE /ACETAMINOPHEN [Percocet 5/325 mg] 1 tab PO Q6H PRN #18 tablet PRN Reason: Pain, Moderate (4-6) predniSONE [Deltasone] 20 mg PO QDAY #30 tablet
[2018-01-15] MEDS: COLCHICINE PO SCH (10:04)
[2018-01-15 17:52] VITALS: BP 131/78
== END 2018-01-15 18:15 | disposition home or self-care (01) | DRG 553 ==
LOC: ED 12:56 → 3A 19:00
PROVIDERS: ADMIT Internal Medicine; ATTEND Family Medicine
DX: M10.9 Gout, unspecified (principal); N17.0 Acute kidney failure with tubular necrosis; I10 Essential (primary) hypertension; D64.9 Anemia, unspecified; J45.909 Unspecified asthma, uncomplicated; M19.90 Unspecified osteoarthritis, unspecified site; E11.9 Type 2 diabetes mellitus without complications
CPT/HCPCS: 36415; 80053; 81001; 82550; 82962; 83036; 83735; 84100; 84484; 84550; 85025; 87116; 96360; A9577; J0295; J0696; J1815; J2270; J3370; J7030; J7040; J7512; Q9967

== ENCOUNTER 2018-07-19 10:23 | Emergency (ER) | payer SELFPAY ==
[2018-07-19] MEDS ORDERED: CATAPRES PO ONE (12:29)
[2018-07-19 12:54] LABS: Hematocrit 33.5 % (35.5-45.6); Mean Corpuscular HGB Conc 33 % (32-34); Mean Corpuscular Volume 83 fl (84-94); Platelet Count 491 K/mm3 (140-440); Red Blood Count 4.04 M/mm3 (3.65-5.03); Red Cell Distribution Width 15.7 % (13.2-15.2)
--- NOTE | 2018-07-19 13:34 | Emergency Department Report ---
ED General Adult HPI - General Chief complaint: High BP Stated complaint: HEADACHE/DIZZINESS/ BURNING FINGERS Time Seen by Provider: 07/19/18 12:29 Source: patient Mode of arrival: Ambulatory Limitations: No Limitations - History of Present Illness Initial comments: Pt is a 48-year-old -[place] male that comes to the ER today with numerous vague complaints. This is after telling the triage nurse that he was here for medication refill. Patient denies chest pain or shortness of breath. ABCs intact. Vital signs are stable. He is afebrile. Nontoxic on admission Patient states he ran out his medications. He also states that he has had some weakness. But he prays on it. States that he has had recent cold symptoms. He denies any fever at home. Not nausea vomiting diarrhea. -: Gradual - Related Data Previous Rx's Medication Instructions Recorded Last Taken Type RX: ALBUTEROL Inhaler (OR & NICU) 2 puff IH QID PRN #1 unit 01/15/18 Unknown Rx [ProAir HFA Inhaler] RX: ALBUTEROL NEB's [Proventil 2.5 mg IH Q4HRT PRN #100 nebu 01/15/18 Unknown Rx 0.083% NEBS] RX: amLODIPine [Norvasc] 10 mg PO QDAY #30 tablet 01/15/18 Unknown Rx RX: Carvedilol [Coreg] 12.5 mg PO BID #60 tablet 07/19/18 Unknown Rx Allergies Allergy/AdvReac Type Severity Reaction Status Date / Time No Known Allergies Allergy Verified 01/09/18 13:02 ED Review of Systems ROS: Stated complaint: HEADACHE/DIZZINESS/ BURNING FINGERS Other details as noted in HPI Comment: All other systems reviewed and negative Constitutional: denies: chills, fever Eyes: denies: eye pain ENT: denies: ear pain, throat pain Respiratory: denies: cough Cardiovascular: denies: chest pain, palpitations, dyspnea on exertion, orthopnea Endocrine: denies: excessive sweating Gastrointestinal: denies: nausea Genitourinary: denies: urgency Musculoskeletal: denies: back pain Skin: denies: rash Neurological: as per HPI, headache, weakness, numbness, other (dizzy). denies: paresthesias, confusion, abnormal gait, vertigo Psychiatric: denies: depression Hematological/Lymphatic: denies: easy bleeding ED Past Medical Hx - Past Medical History Previous Medical History?: Yes Hx Hypertension: Yes (non compliant with meds) Hx Congestive Heart Failure: No Hx Diabetes: No Hx Arthritis: Yes Hx Asthma: No Hx COPD: No Additional medical history: GOUT. anemia, Hx of drug use - Surgical History Past Surgical History?: No - Social History Smoking Status: Never Smoker Substance Use Type: None - Medications Home Medications: Home Medications Medication Instructions Recorded Confirmed Last Taken Type RX: ALBUTEROL Inhaler (OR & NICU) 2 puff IH QID PRN #1 unit 01/15/18 Unknown Rx [ProAir HFA Inhaler] RX: ALBUTEROL NEB's [Proventil 2.5 mg IH Q4HRT PRN #100 nebu 01/15/18 Unknown Rx 0.083% NEBS] RX: amLODIPine [Norvasc] 10 mg PO QDAY #30 tablet 01/15/18 Unknown Rx RX: Carvedilol [Coreg] 12.5 mg PO BID #60 tablet 07/19/18 Unknown Rx ED Physical Exam - General Limitations: No Limitations General appearance: alert, in no apparent distress - Head Head exam: Present: atraumatic, normocephalic - Eye Eye exam: Present: normal appearance, PERRL - ENT ENT exam: Present: mucous membranes moist - Neck Neck exam: Present: normal inspection - Respiratory Respiratory exam: Present: normal lung sounds bilaterally - Cardiovascular Cardiovascular Exam: Present: regular rate - GI/Abdominal GI/Abdominal exam: Present: soft, normal bowel sounds - exam: Present: normal inspection External exam: Present: normal external exam - Extremities Exam Extremities exam: Present: normal inspection - Back Exam Back exam: Present: normal inspection, full ROM - Neurological Exam Neurological exam: Present: alert, CN II-XII intact, normal gait, reflexes normal - Psychiatric Psychiatric exam: Present: normal mood - Skin Skin exam: Present: warm, dry, intact, normal color ED Course Vital Signs 07/19/18 07/19/18 07/19/18 10:33 12:44 12:49 Temperature 98.5 F 98.0 F Pulse Rate 71 70 71 Respiratory 16 14 Rate Blood Pressure 185/109 185/109 Blood Pressure 168/89 [Left] O2 Sat by Pulse 99 99 Oximetry 07/19/18 07/19/18 07/19/18 14:00 14:44 15:57 Temperature 98.0 F 98.5 F Pulse Rate 79 80 Respiratory 19 16 16 Rate Blood Pressure Blood Pressure 138/88 110/62 [Left] O2 Sat by Pulse 100 99 99 Oximetry ED Medical Decision Making - Lab Data Result diagrams: 07/19/18 12:42 07/19/18 12:42 - EKG Data -: EKG Interpreted by Me EKG shows normal: sinus rhythm Rate: normal - EKG Data When compared to previous EKG there are: no significant change Interpretation: no acute changes - Medical Decision Making pt has no focal neuro def he is hyperreligious no cp or sob 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 he is here for bp med refill medicated for bp with trending down of bp states he is on coreg at home no focal neuro exam on re-exam denies having pcp Labs 07/19/18 07/19/18 12:42 12:42 WBC 10.1 RBC 4.04 Hgb 11.0 L Hct 33.5 L MCV 83 L MCH 27 L MCHC 33 RDW 15.7 H Plt Count 491 H Sodium 144 Potassium 5.7 H Chloride 106.3 Carbon Dioxide 20 L Anion Gap 23 BUN 16 Creatinine 1.6 H Estimated GFR 56 BUN/Creatinine Ratio 10 Glucose 97 Calcium 10.0 Total Bilirubin 0.20 AST 17 ALT 11 Alkaline Phosphatase 98 Troponin T < 0.010 Total Protein 8.9 H Albumin 4.4 Albumin/Globulin Ratio 1.0 - Differential Diagnosis ro arrythymia; ro tia/cva Critical care attestation.: If time is entered above; I have spent that time in minutes in the direct care of this critically ill patient, excluding procedure time. ED Disposition Clinical Impression: Hypertension, Medication refill, Chronic anemia Disposition: -01 TO HOME OR SELFCARE Is pt being admited?: No Does the pt Need Aspirin: No Condition: Stable Instructions: Hypertension (ED) Additional Instructions: FOLLOW UP WITH PCP REFERRAL BELOW LOW SALT DIET ACTIVITY TOLERATED Prescriptions: RX: Carvedilol [Coreg] 12.5 mg PO BID #60 tablet Referrals: PRIMARY CARE, [Primary Care Provider] - 3-5 Days Time of Disposition: 15:26
[2018-07-19 13:59] LABS: Alanine Aminotransferase 11 units/L (7-56); Albumin 4.4 g/dL (3.9-5); BUN/Creatinine Ratio 10; Blood Urea Nitrogen 16 mg/dL (9-20); Hemolysis Index 21
--- NOTE | 2018-07-19 14:48 | XRay Report ---
ROUTINE CHEST, TWO VIEWS: HISTORY: chest pain. The trachea, heart, mediastinal contour, lung ratliff and bony thorax are unremarkable. No significant change since 06/08/17. IMPRESSION: Unremarkable chest x-ray.
[2018-07-19 15:59] VITALS: BP 110/62
== END 2018-07-19 15:57 | disposition home or self-care (01) ==
LOC: ED 10:23
DX: I10 Essential (primary) hypertension (principal); Z76.0 Encounter for issue of repeat prescription; D64.9 Anemia, unspecified; M10.9 Gout, unspecified
CPT/HCPCS: 36415; 71046; 80053; 84484; 85027; 99284

== ENCOUNTER 2018-07-27 10:39 | Emergency (ER) | payer SELFPAY ==
[2018-07-27 10:57] VITALS: BP 184/108
[2018-07-27] MEDS ORDERED: CATAPRES PO ONE (11:34)
--- NOTE | 2018-07-27 11:35 | Emergency Department Report ---
ED Recheck HPI - General Chief Complaint: High BP Stated Complaint: BP CHECK Time Seen by Provider: 07/27/18 11:05 Source: patient Mode of arrival: Ambulatory Limitations: No Limitations - History of Present Illness Initial Comments: 48 yo AA male who was here 2 weeks ago for blood pressure elevation- pt was started on coreg bid. his bp has improved but not at goal. he came here instead of to pcp which he was referred to. Symptoms Since Prior Visit: no new symptoms - Related Data Previous Rx's Medication Instructions Recorded Last Taken Type RX: Carvedilol [Coreg] 12.5 mg PO BID #60 tablet 07/19/18 Unknown Rx RX: amLODIPine [Norvasc] 10 mg PO QDAY #30 tablet 07/27/18 Unknown Rx Allergies Allergy/AdvReac Type Severity Reaction Status Date / Time No Known Allergies Allergy Verified 01/09/18 13:02 ED Review of Systems ROS: Stated complaint: BP CHECK Other details as noted in HPI Comment: bp eval, no symptoms ED Past Medical Hx - Past Medical History Previous Medical History?: Yes Hx Hypertension: Yes (non compliant with meds) Hx Congestive Heart Failure: No Hx Diabetes: No Hx Arthritis: Yes Hx Asthma: No Hx COPD: No Additional medical history: GOUT. anemia, Hx of drug use - Surgical History Past Surgical History?: No - Social History Smoking Status: Never Smoker Substance Use Type: None - Medications Home Medications: Home Medications Medication Instructions Recorded Confirmed Last Taken Type RX: Carvedilol [Coreg] 12.5 mg PO BID #60 tablet 07/19/18 Unknown Rx RX: amLODIPine [Norvasc] 10 mg PO QDAY #30 tablet 07/27/18 Unknown Rx ED Physical Exam - General Limitations: No Limitations General appearance: alert - Head Head exam: Present: atraumatic - Eye Eye exam: Present: normal appearance, PERRL Pupils: Present: normal accommodation - ENT ENT exam: Present: mucous membranes moist - Neck Neck exam: Present: normal inspection - Respiratory Respiratory exam: Present: normal lung sounds bilaterally - Cardiovascular Cardiovascular Exam: Present: regular rate - GI/Abdominal GI/Abdominal exam: Present: soft, normal bowel sounds - Rectal Rectal exam: Present: deferred - Extremities Exam Extremities exam: Present: normal inspection, full ROM - Back Exam Back exam: Present: normal inspection, full ROM - Neurological Exam Neurological exam: Present: alert, oriented X3 - Psychiatric Psychiatric exam: Present: normal affect, normal mood - Skin Skin exam: Present: warm, dry ED Course Vital Signs 07/27/18 07/27/18 10:50 11:51 Temperature 97.9 F Pulse Rate 66 66 Respiratory 18 Rate Blood Pressure 184/108 184/108 O2 Sat by Pulse 100 Oximetry ED Recheck MDM - Core Measures Measure Exclusions: not indicated - Medical Decision Making added norvasc to regimen pt had been on before again emphasized pcp Critical care attestation.: If time is entered above; I have spent that time in minutes in the direct care of this critically ill patient, excluding procedure time. ED Disposition Clinical Impression: HTN (hypertension) Disposition: - TO HOME OR SELFCARE Is pt being admited?: No Does the pt Need Aspirin: No Condition: Stable Instructions: Hypertension (ED) Additional Instructions: CONTINUE YOUR COREG TWICE PER DAY NORVASC DAILY STARTING IN AM FOLLOW UP WITH PCP IN 2 WEEKS TO BE SURE IT IS WORKING WELL LOW FAT LOW SODIUM DIET DRINK 2GALLON OF WATER PER DAY. Prescriptions: RX: amLODIPine [Norvasc] 10 mg PO QDAY #30 tablet Referrals: NORA DEWITT MD [Primary Care Provider] - 3-5 Days Time of Disposition: 11:37
== END 2018-07-27 11:52 | disposition home or self-care (01) ==
LOC: ED 10:39
DX: I10 Essential (primary) hypertension (principal); M19.90 Unspecified osteoarthritis, unspecified site; M10.9 Gout, unspecified; Z86.2 Personal history of diseases of the blood and blood-forming organs and certain disorders involving the immune mechanism
CPT/HCPCS: 99282

== ENCOUNTER 2018-07-28 11:30 | Emergency (ER) | payer SELFPAY | END 2018-07-28 11:40 | LOC: ED 11:30 ==

== ENCOUNTER 2018-12-31 12:33 | Emergency (ER) | payer OTHER ==
--- NOTE | 2018-12-31 12:44 | Event Note ---
ED Screening Note Date of service: 12/31/18 Time: 12:40 ED Screening Note: This is a 48 y.o. M. that presents to the ER with left hand swelling and LLE swelling. PMH HTN, asthma, and arthritis This initial assessment/diagnostic orders/clinical plan/treatment(s) is/are subject to change based on patients health status, clinical progression and re- assessment by fellow clinical providers in the ED. Further treatment and workup at subsequent clinical providers discretion. Patient/guardian urged not to elope from the ED as their condition may be serious if not clinically assessed and managed. Initial orders include: Labs and XR of left hand
[2018-12-31] MEDS ORDERED: TORADOL IM ONE (14:40)
[2018-12-31] MEDS ORDERED: CATAPRES PO ONE (14:40)
[2018-12-31 15:01] LABS: Basophils # (Auto) 0.1 K/mm3 (0.0-0.1); Basophils % (Auto) 0.7 % (0.0-1.8); Eosinophils # (Auto) 0.1 K/mm3 (0.0-0.4); Eosinophils % (Auto) 0.9 % (0.0-4.3); Hemoglobin 10.2 gm/dl (11.8-15.2); Lymphocytes # (Auto) 1.7 K/mm3 (1.2-5.4); Lymphocytes % (Auto) 13.4 % (13.4-35.0); Mean Corpuscular HGB Conc 32 % (32-34); Mean Corpuscular Volume 85 fl (84-94); Monocytes # (Auto) 0.7 K/mm3 (0.0-0.8); Monocytes % (Auto) 5.6 % (0.0-7.3); Platelet Count 432 K/mm3 (140-440); Red Blood Count 3.75 M/mm3 (3.65-5.03); Red Cell Distribution Width 16.3 % (13.2-15.2)
[2018-12-31 15:14] VITALS: BP 191/123
[2018-12-31 15:57] LABS: BUN/Creatinine Ratio 8; Blood Urea Nitrogen 10 mg/dL (9-20); Calcium 9.1 mg/dL (8.4-10.2); Hemolysis Index 5; Uric Acid 10.8 mg/dL (3.5-7.6)
[2018-12-31] MEDS ORDERED: COLCHICINE PO ONE ×2 (16:32)
--- NOTE | 2018-12-31 16:40 | Emergency Department Report ---
ED General Adult HPI - General Chief complaint: Pain General Stated complaint: L SIDE PAIN/SWOLLEN Time Seen by Provider: 12/31/18 12:40 Source: patient Mode of arrival: Ambulatory Limitations: No Limitations - History of Present Illness Initial comments: Patient is a 48-year-old [place] male who is presenting with elevated blood pressure. Patient was sent in by the clinic at his job that he is trying to apply to. Patient has been noncompliant with blood pressure medicines for the past 6-8 months according to the patient. He has a history of taking Coreg Norvasc. Patient states that occasionally he does have some shortness of breath as well as some chest tightness. He has been chest pain-free since last night. Patient also noted that his left hand and left ankle have been swollen for the past 24 hours. States is never happened before. States is worse with movement and with light touching. He denies any direct trauma. Pain is 8 out of 10 in severity. Severity scale (0 -10): 10 - Related Data Previous Rx's Medication Instructions Recorded Last Taken Type Carvedilol [Coreg] 12.5 mg PO BID #60 tablet 07/19/18 Unknown Rx amLODIPine [Norvasc] 10 mg PO QDAY #30 tablet 07/27/18 Unknown Rx Amlodipine Besylate [Norvasc] 5 mg PO DAILY #30 tablet 12/31/18 Unknown Rx Carvedilol [Coreg] 12.5 mg PO BID #60 tablet 12/31/18 Unknown Rx Ibuprofen [Motrin 800 MG tab] 800 mg PO Q8HR PRN #10 tablet 12/31/18 Unknown Rx predniSONE [Deltasone] 20 mg PO QDAY #5 tab 12/31/18 Unknown Rx Allergies Allergy/AdvReac Type Severity Reaction Status Date / Time No Known Allergies Allergy Verified 12/31/18 12:35 ED Review of Systems ROS: Stated complaint: L SIDE PAIN/SWOLLEN Other details as noted in HPI Comment: All other systems reviewed and negative ED Past Medical Hx - Past Medical History Hx Hypertension: Yes (non compliant with meds) Hx Congestive Heart Failure: No Hx Diabetes: No Hx Arthritis: Yes Hx Asthma: No Hx COPD: No Additional medical history: GOUT. anemia, Hx of drug use - Social History Smoking Status: Never Smoker - Medications Home Medications: Home Medications Medication Instructions Recorded Confirmed Last Taken Type Carvedilol [Coreg] 12.5 mg PO BID #60 tablet 07/19/18 Unknown Rx amLODIPine [Norvasc] 10 mg PO QDAY #30 tablet 07/27/18 Unknown Rx Amlodipine Besylate [Norvasc] 5 mg PO DAILY #30 tablet 12/31/18 Unknown Rx Carvedilol [Coreg] 12.5 mg PO BID #60 tablet 12/31/18 Unknown Rx Ibuprofen [Motrin 800 MG tab] 800 mg PO Q8HR PRN #10 tablet 12/31/18 Unknown Rx predniSONE [Deltasone] 20 mg PO QDAY #5 tab 12/31/18 Unknown Rx ED Physical Exam - General Limitations: No Limitations General appearance: alert, in no apparent distress - Head Head exam: Present: atraumatic, normocephalic - Eye Eye exam: Present: normal appearance, PERRL, EOMI - ENT ENT exam: Present: mucous membranes moist - Neck Neck exam: Present: normal inspection - Respiratory Respiratory exam: Present: normal lung sounds bilaterally. Absent: respiratory distress, wheezes, rales, rhonchi - Cardiovascular Cardiovascular Exam: Present: regular rate, normal rhythm, normal heart sounds. Absent: systolic murmur, diastolic murmur, rubs, gallop - GI/Abdominal GI/Abdominal exam: Present: soft, normal bowel sounds. Absent: distended, tenderness, guarding, rebound - Rectal Rectal exam: Present: deferred - Extremities Exam Extremities exam: Present: normal inspection, joint swelling (left wrist and left ankle without erythema or induration of the skin) - Back Exam Back exam: Present: normal inspection - Neurological Exam Neurological exam: Present: alert, oriented X3 - Psychiatric Psychiatric exam: Present: normal affect, normal mood - Skin Skin exam: Present: warm, dry, intact, normal color. Absent: rash ED Course Vital Signs 12/31/18 12/31/18 12/31/18 12:40 14:55 15:05 Temperature 98.5 F Pulse Rate 74 68 68 Respiratory 18 20 Rate Blood Pressure 201/120 191/123 Blood Pressure 191/123 [Right] O2 Sat by Pulse 99 99 Oximetry 12/31/18 15:23 Temperature Pulse Rate Respiratory 18 Rate Blood Pressure Blood Pressure [Right] O2 Sat by Pulse 99 Oximetry ED Medical Decision Making - Lab Data Result diagrams: 12/31/18 14:37 12/31/18 15:20 Lab Results 12/31/18 12/31/18 Range/Units 14:37 15:20 WBC 13.0 H (4.5-11.0) K/mm3 RBC 3.75 (3.65-5.03) M/mm3 Hgb 10.2 L (11.8-15.2) gm/dl Hct 32.0 L (35.5-45.6) % MCV 85 (84-94) fl MCH 27 L (28-32) pg MCHC 32 (32-34) % RDW 16.3 H (13.2-15.2) % Plt Count 432 (140-440) K/mm3 Lymph % (Auto) 13.4 (13.4-35.0) % [place] % (Auto) 5.6 (0.0-7.3) % Eos % (Auto) 0.9 (0.0-4.3) % Baso % (Auto) 0.7 (0.0-1.8) % Lymph # 1.7 (1.2-5.4) K/mm3 [place] # 0.7 (0.0-0.8) K/mm3 Eos # 0.1 (0.0-0.4) K/mm3 Baso # 0.1 (0.0-0.1) K/mm3 Seg Neutrophils % 79.4 H (40.0-70.0) % Seg Neutrophils # 10.3 H (1.8-7.7) K/mm3 Sodium 137 (137-145) mmol/L Potassium 4.1 (3.6-5.0) mmol/L Chloride 101.8 (98-107) mmol/L Carbon Dioxide 22 (22-30) mmol/L Anion Gap 17 mmol/L BUN 10 (9-20) mg/dL Creatinine 1.3 (0.8-1.5) mg/dL Estimated GFR > 60 ml/min BUN/Creatinine Ratio 8 % Glucose 86 (75-100) mg/dL Uric Acid 10.8 H (3.5-7.6) mg/dL Calcium 9.1 (8.4-10.2) mg/dL Troponin T < 0.010 (0.00-0.029) ng/mL - EKG Data -: EKG Interpreted by Md EKG shows normal: sinus rhythm, axis, intervals, QRS complexes, ST-T waves Rate: normal - EKG Data Interpretation: normal EKG - Radiology Data Radiology results: report reviewed (CXR wnl) - Medical Decision Making Patient's blood pressure did decrease significantly with Catapres. Patient be restarted back on his blood pressure medications. Patient's uric acid level was elevated patient likely has acute gouty arthritis. Patient given a dose of colchicine here in emergency department with taking one 1 hour after the first dose. Patient given pain meds as well. Patient discharged home. Patient given follow-up for primary care. Critical care attestation.: If time is entered above; I have spent that time in minutes in the direct care of this critically ill patient, excluding procedure time. 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
--- NOTE | 2018-12-31 16:48 | XRay Report ---
PROCEDURE: XR HAND 3+V LT TECHNIQUE: Left hand 3 views HISTORY: swelling and pain COMPARISONS: FINDINGS: No acute fracture identified. No dislocation seen. Carpal bones maintain normal alignment. There is d eformity tuft distal phalanx of the third digit likely reflecting sequela of remote trauma please cor relate clinically. IMPRESSION: deformity tuft distal phalanx of the third digit appears likely remote please correlate with clinical findings Otherwise negative study . This document is electronically signed by Maxi Alba MD., December 31 2018 04:45:51 PM ET
== END 2018-12-31 19:41 | disposition home or self-care (01) ==
LOC: ED 12:33
DX: I16.0 Hypertensive urgency (principal); I10 Essential (primary) hypertension; M10.032 Idiopathic gout, left wrist; M19.90 Unspecified osteoarthritis, unspecified site; D64.9 Anemia, unspecified; Z91.14 Patient's other noncompliance with medication regimen; Z79.899 Other long term (current) drug therapy
CPT/HCPCS: 36415; 73130; 80048; 84484; 84550; 85025; 93005; 93010; 96372; 99283; J1885

== ENCOUNTER 2020-03-01 13:10 | Observation (INO) | payer OTHER ==
--- NOTE | 2020-03-01 14:04 | Emergency Department Report ---
Blank Doc - Documentation Documentation: 49-year-old male that presents with generalized swelling with history of lymph odema. This initial assessment/diagnostic orders/clinical plan/treatment(s) is/are subject to change based on patient's health status, clinical progression and re- assessment by fellow clinical providers in the ED. Further treatment and workup at subsequent clinical providers discretion. Patient/guardians urged not to elope from the ED as their condition may be serious if not clinically assessed and managed. Initial orders include: 1- Patient sent to [facility] ED for further evaluation and treatment 2- labs 3- UA
[2020-03-01 14:57] LABS: Basophils # (Auto) 0.1 K/mm3 (0.0-0.1); Basophils % (Auto) 0.8 % (0.0-1.8); Eosinophils # (Auto) 0.1 K/mm3 (0.0-0.4); Eosinophils % (Auto) 0.8 % (0.0-4.3); Hematocrit 26.1 % (35.5-45.6); Hemoglobin 8.7 gm/dl (11.8-15.2); Lymphocytes # (Auto) 1.6 K/mm3 (1.2-5.4); Lymphocytes % (Auto) 12.2 % (13.4-35.0); Mean Corpuscular HGB Conc 33 % (32-34); Mean Corpuscular Volume 77 fl (84-94); Monocytes # (Auto) 0.9 K/mm3 (0.0-0.8); Monocytes % (Auto) 6.5 % (0.0-7.3); Platelet Count 434 K/mm3 (140-440); Red Blood Count 3.41 M/mm3 (3.65-5.03); Red Cell Distribution Width 17.5 % (13.2-15.2)
[2020-03-01 15:14] LABS: Albumin 4.2 g/dL (3.9-5); Calcium 9.7 mg/dL (8.4-10.2)
[2020-03-01 15:16] LABS: Uric Acid 12.3 mg/dL (3.5-7.6)
--- NOTE | 2020-03-01 22:06 | Emergency Department Report ---
ED Chest Pain HPI - General Chief Complaint: Extremity Problem,Nontraumatic Stated Complaint: LYMPHEDEMIA SYMPTOMS PUI?: No Time Seen by Provider: 03/01/20 14:02 Source: patient Mode of arrival: Wheelchair Limitations: No Limitations - History of Present Illness Initial Comments: Patient is a 49-year-old male that presents emergency room with complaints of bilateral lower extremity edema, shortness of breath, chest pain, dyspnea on exertion. Patient states his symptoms are worsening. Patient states that his chest pain or shortness of breath are worse with exertion and better with rest. Patient states that bilateral lower extremities has been going on for 2 weeks and is worsening. Patient states his chest pain or shortness of breath have been going on for 3 days. Patient states that the chest pain and shortness of breath are becoming more frequent and worsening. Patient states the chest pain is a 4 out of 10. Patient dates in his left and center chest. Patient states the pain is nonradiating. Patient denies fever and chills. Patient denies cough. Patient denies nausea vomiting. Patient denies recent travel. Patient denies recent international travel. Patient denies exposure to the novel coronavirus. Patient denies sick contacts. Patient denies fever and chills. Patient denies cough. Patient denies diarrhea. Patient denies coming in contact with anybody with symptoms of the novel coronavirus. MD Complaint: chest pain -: Sudden Onset: during rest, during exertion Pain Location: substernal, left chest Pain Radiation: none Severity: moderate Severity scale (0 -10): 4 Quality: heaviness Consistency: constant Improves With: rest Worsens With: exertion re: dyspnea. denies: nausea, vomting, diaphoresis Other Symptoms: leg swelling. denies: cough, fever, syncope, rash, acid taste in mouth Treatments Prior to Arrival: none Aspirin use within the Past 7 Days: (0) No - Related Data Previous Rx's Medication Instructions Recorded Last Taken Type carvediloL [Coreg] 12.5 mg PO BID #60 tablet 07/19/18 Unknown Rx amLODIPine 10 mg PO QDAY #30 tablet 07/27/18 Unknown Rx Amlodipine Besylate [Norvasc] 5 mg PO DAILY #30 tablet 12/31/18 Unknown Rx Ibuprofen [Motrin 800 MG tab] 800 mg PO Q8HR PRN #10 tablet 12/31/18 Unknown Rx carvediloL [Coreg] 12.5 mg PO BID #60 tablet 12/31/18 Unknown Rx predniSONE [Deltasone] 20 mg PO QDAY #5 tab 12/31/18 Unknown Rx Allergies Allergy/AdvReac Type Severity Reaction Status Date / Time No Known Allergies Allergy Verified 12/31/18 12:35 Heart Score - HEART Score History: Moderately suspicious EKG: Non-specific Age: 45-65 Risk factors: 1-2 risk factors Troponin: < normal limit HEART Score: 4 ED Review of Systems ROS: Stated complaint: LYMPHEDEMIA SYMPTOMS Other details as noted in HPI Constitutional: denies: chills, fever Eyes: denies: eye pain, eye discharge, vision change ENT: denies: ear pain, throat pain Respiratory: shortness of breath, SOB with exertion, SOB at rest. denies: cough, wheezing Cardiovascular: chest pain, palpitations, edema Endocrine: no symptoms reported Gastrointestinal: denies: abdominal pain, nausea, diarrhea Genitourinary: denies: urgency, dysuria Musculoskeletal: denies: back pain, joint swelling, arthralgia Skin: denies: rash, lesions Neurological: denies: headache, weakness, paresthesias Psychiatric: denies: anxiety, depression Hematological/Lymphatic: denies: easy bleeding, easy bruising ED Past Medical Hx - Past Medical History Previous Medical History?: Yes Hx Hypertension: Yes (non compliant with meds) Hx Congestive Heart Failure: No Hx Diabetes: No Hx Arthritis: Yes Hx Asthma: No Hx COPD: No Additional medical history: GOUT. anemia, Hx of drug use - Surgical History Past Surgical History?: No - Family History Family history: no significant - Social History Smoking Status: Never Smoker Substance Use Type: None - Medications Home Medications: Home Medications Medication Instructions Recorded Confirmed Last Taken Type carvediloL [Coreg] 12.5 mg PO BID #60 tablet 07/19/18 Unknown Rx amLODIPine 10 mg PO QDAY #30 tablet 07/27/18 Unknown Rx Amlodipine Besylate [Norvasc] 5 mg PO DAILY #30 tablet 12/31/18 Unknown Rx Ibuprofen [Motrin 800 MG tab] 800 mg PO Q8HR PRN #10 tablet 12/31/18 Unknown Rx carvediloL [Coreg] 12.5 mg PO BID #60 tablet 12/31/18 Unknown Rx predniSONE [Deltasone] 20 mg PO QDAY #5 tab 12/31/18 Unknown Rx ED Physical Exam - General Limitations: No Limitations General appearance: alert, in no apparent distress - Head Head exam: Present: atraumatic, normocephalic - Eye Eye exam: Present: normal appearance - ENT ENT exam: Present: mucous membranes moist - Neck Neck exam: Present: normal inspection - Respiratory Respiratory exam: Present: rales, decreased breath sounds. Absent: chest wall tenderness - Cardiovascular Cardiovascular Exam: Present: regular rate, normal rhythm. Absent: systolic murmur, diastolic murmur, rubs, gallop - GI/Abdominal GI/Abdominal exam: Present: soft, normal bowel sounds - Rectal Rectal exam: Present: deferred - Extremities Exam Extremities exam: Present: normal inspection (Except lower extremity edema), full ROM, pedal edema. Absent: tenderness, calf tenderness - Back Exam Back exam: Present: normal inspection - Neurological Exam Neurological exam: Present: alert, oriented X3 - Psychiatric Psychiatric exam: Present: normal affect, normal mood - Skin Skin exam: Present: warm, dry, intact, normal color. Absent: rash ED Course Vital Signs 03/01/20 03/01/20 03/01/20 14:02 21:47 22:00 Temperature 98.8 F Pulse Rate 94 H 69 70 Respiratory 16 18 13 Rate Blood Pressure 168/101 Blood Pressure 166/88 [Left] O2 Sat by Pulse 99 100 100 Oximetry 03/01/20 03/01/20 03/01/20 22:16 22:30 22:46 Temperature Pulse Rate 63 63 66 Respiratory 16 12 17 Rate Blood Pressure 168/101 168/101 168/101 Blood Pressure [Left] O2 Sat by Pulse 100 100 100 Oximetry 03/01/20 03/01/20 03/01/20 23:00 23:16 23:30 Temperature Pulse Rate 66 64 65 Respiratory 14 12 Rate Blood Pressure 169/101 169/101 169/101 Blood Pressure [Left] O2 Sat by Pulse 100 100 100 Oximetry 03/01/20 03/02/20 03/02/20 23:32 00:00 00:30 Temperature Pulse Rate 59 L 58 L 60 Respiratory Rate Blood Pressure 169/101 143/73 143/73 Blood Pressure [Left] O2 Sat by Pulse 100 100 100 Oximetry 03/02/20 03/02/20 03/02/20 01:00 01:30 02:00 Temperature Pulse Rate 61 61 59 L Respiratory Rate Blood Pressure 144/75 144/75 131/68 Blood Pressure [Left] O2 Sat by Pulse 100 100 100 Oximetry 03/02/20 03/02/20 02:10 02:14 Temperature Pulse Rate 69 77 Respiratory Rate Blood Pressure 144/75 Blood Pressure [Left] O2 Sat by Pulse 100 Oximetry - Reevaluation(s) Reevaluation #1: I discussed all results with patient. I discussed plan of care with patient. Patient agrees with plan of care and admission. Patient to be admitted to the hospitalist service. 03/01/20 23:57 - Consultations Consultation #1: Hospitalist consulted for admission. Hospitalist to admit patient. 03/01/20 23:58 BARB score - Barb Score Age > 65: (0) No Aspirin use within the Past 7 Days: (0) No 3 or more CAD Risk Factors: (0) No 2 or more Angina events in past 24 hrs: (1) Yes Known CAD with more than 50% Stenosis: (0) No Elevated Cardiac Markers: (0) No ST Deviation Greater than 0.5mm: (0) No BARB Score: 1 ED Medical Decision Making - Lab Data Result diagrams: 03/01/20 14:30 03/01/20 14:30 - EKG Data -: EKG Interpreted by Me EKG shows normal: sinus rhythm, axis, intervals, QRS complexes, ST-T waves Rate: normal - EKG Data Interpretation: LVH - Radiology Data Radiology results: report reviewed, image reviewed interpreted by me: Chest x-ray: No fracture, no pneumonia, no pneumothorax, pulmonary edema. CHEST 1 VIEW 2205 INDICATION / CLINICAL INFORMATION: Soreness of breath, chest pain, history of lymphedema of right lower extremity COMPARISON: 07/19/2018 FINDINGS: SUPPORT DEVICES: None HEART / MEDIASTINUM: Mild cardiomegaly LUNGS / PLEURA: Mild diffuse increased interstitial markings are seen which are more obvious on previous study. This could represent minimal diffuse interstitial edema. No definite focal infiltrates are seen. No pneumothorax. ADDITIONAL FINDINGS: No significant additional findings. IMPRESSION: Slightly congested appearance - Medical Decision Making Patient is a 49-year-old male that presents emergency room with complaints of shortness of breath and chest pain. Patient's symptoms are worsening. Patient also complained of dyspnea on exertion. Patient also complaining of lower e xtremity edema. Patient is noncompliant with his medical care and has chronically elevated blood pressure and uncontrolled due to not taking any medications. Patient had a chest x-ray which shows mild CHF changes. Patient's troponin was negative. Patient's EKG is unremarkable. Patient's chemistry is positive for renal insufficiency. Patient given IV Lasix, aspirin and IV morphine. Patient's pain improved.. Patient admitted to the hospitalist service. Patient will require a cardiology consult. - Differential Diagnosis Chest pain, CHF, shortness of breath, ACS, edema Critical Care Time: Yes Critical care time in (mins) excluding proc time.: 35 Critical care attestation.: If time is entered above; I have spent that time in minutes in the direct care of this critically ill patient, excluding procedure time. Critical Care Time: 35 minutes ED Disposition Clinical Impression: AMATO (dyspnea on exertion), SOB (shortness of breath), Lower leg edema, New onset of congestive heart failure, Noncompliance, Renal insufficiency, Elevated uric acid in blood HTN (hypertension) Qualifiers: Hypertension type: essential hypertension Qualified Code(s): I10 - Essential (primary) hypertension Chest pain Qualifiers: Chest pain type: unspecified Qualified Code(s): R07.9 - Chest pain, unspecified Disposition: DC-09 OP ADMIT IP TO THIS HOSP Is pt being admited?: Yes Does the pt Need Aspirin: No Condition: Critical Time of Disposition: 23:57
[2020-03-01] MEDS ORDERED: ASPIRIN 325 MG TAB PO ONE (22:11)
[2020-03-01] MEDS ORDERED: MORPHINE 2 MG/1 ML INJ IV ONE (22:11)
[2020-03-01 22:17] LABS: Bilirubin,Urine NEG (Negative); Blood,Urine NEG (Negative); Color,Urine Straw (Yellow); Mucus,Urine FEW /HPF; Urobilinogen,Urine < 2.0 mg/dL (<2.0)
--- NOTE | 2020-03-01 22:45 | XRay Report ---
CHEST 1 VIEW 2205 INDICATION / CLINICAL INFORMATION: Soreness of breath, chest pain, history of lymphedema of right low er extremity COMPARISON: 07/19/2018 FINDINGS: SUPPORT DEVICES: None HEART / MEDIASTINUM: Mild cardiomegaly LUNGS / PLEURA: Mild diffuse increased interstitial markings are seen which are more obvious on previ ous study. This could represent minimal diffuse interstitial edema. No definite focal infiltrates are seen. No pneumothorax. ADDITIONAL FINDINGS: No significant additional findings. IMPRESSION: Slightly congested appearance Signer Name: Henri Solorzano MD Signed: 03/01/2020 10:40 PM Workstation Name: [id number]
[2020-03-01 23:04] LABS: Creatine Kinase MB 1.9 ng/mL (0.0-4.0)
[2020-03-01] MEDS ORDERED: FUROSEMIDE 40 MG/4 ML INJ IV ONE (23:55)
[2020-03-02] MEDS ORDERED: FUROSEMIDE 40 MG/4 ML INJ ONE (00:28)
[2020-03-02] MEDS ORDERED: MAGNESIUM HYDROXIDE (MOM) ORAL LIQD UDC PO PRN (00:34)
[2020-03-02] MEDS ORDERED: ONDANSETRON 4 MG/2 ML INJ IV PRN (00:34)
[2020-03-02] MEDS ORDERED: ACETAMINOPHEN 325 MG TAB PO PRN ×2 (00:34→00:53)
--- NOTE | 2020-03-02 00:51 | History and Physical Report ---
History of Present Illness Date of examination: 03/02/20 Date of admission: 03/02/20 23:59 Chief complaint: Shortness of Breath History of present illness: 49-year-old male with known history of hypertension, gout , arthritis and history of noncompliance with medication presenting to the emergency room today complaining of bilateral lower extremity edema ,shortness of breath, and chest pain. Shortness of breath is said to get worse on exertion and feels better on resting. He has been having associated chest pain which has been ongoing for the past 3 days. Patient states his symptoms started about 2 weeks ago and seems to be getting worse. Chest pain is said to be substernal and also to the left side of his chest. Pain is nonradiating. On a scale of 10 pain was about 4/10 in severity. He denies any fever or chills, no nausea vomiting, no headache or dizziness. Patient denies any sick contacts and no recent travel. Denies any contact with anyone with COVID-19. Work-up in the emergency room today reveals significantly elevated blood pressure upon arrival and chest x-ray shows pulmonary vascular congestion. He was given some IV Lasix in the emergency room with some relief. Past History Past Medical History: arthritis, hypertension, other (Gout,Anemia,Medication Noncompliance) Past Surgical History: No surgical history Social history: other (H/O Drug use.) Family history: no significant family history Medications and Allergies Allergies Allergy/AdvReac Type Severity Reaction Status Date / Time No Known Allergies Allergy Verified 12/31/18 12:35 Home Medications Medication Instructions Recorded Confirmed Last Taken Type carvediloL [Coreg] 12.5 mg PO BID #60 tablet 07/19/18 Unknown Rx amLODIPine 10 mg PO QDAY #30 tablet 07/27/18 Unknown Rx Amlodipine Besylate [Norvasc] 5 mg PO DAILY #30 tablet 12/31/18 Unknown Rx Ibuprofen [Motrin 800 MG tab] 800 mg PO Q8HR PRN #10 tablet 12/31/18 Unknown Rx carvediloL [Coreg] 12.5 mg PO BID #60 tablet 12/31/18 Unknown Rx predniSONE [Deltasone] 20 mg PO QDAY #5 tab 12/31/18 Unknown Rx Active Meds: Active Medications Acetaminophen (Tylenol) 650 mg PO Q4H PRN PRN Reason: Pain MILD(1-3)/Fever >100.5/BOUCHER Furosemide (Lasix) 40 mg IV BID@0600,1800 [facility] Magnesium Hydroxide (Milk Of Magnesia) 30 ml PO Q4H PRN PRN Reason: Constipation Morphine Sulfate (Morphine) 2 mg IV Q4H PRN PRN Reason: Pain, Moderate (4-6) Ondansetron HCl (Zofran) 4 mg IV Q8H PRN PRN Reason: Nausea And Vomiting Sodium Chloride (Sodium Chloride Flush Syringe 10 Ml) 10 ml IV BID VERONA Sodium Chloride (Sodium Chloride Flush Syringe 10 Ml) 10 ml IV PRN PRN PRN Reason: LINE FLUSH Review of Systems Constitutional: no fever, no chills Ears, nose, mouth and throat: no nasal congestion, no sore throat Cardiovascular: chest pain, no palpitations Respiratory: dyspnea on exertion, no cough Gastrointestinal: no nausea, no vomiting, no diarrhea Genitourinary Male: no dysuria, no hematuria, no flank pain Musculoskeletal: no neck pain, no low back pain Integumentary: no rash, no pruritis Neurological: no headaches, no confusion Psychiatric: no anxiety, no depression Exam - Constitutional Vitals: Temp Pulse Resp BP Pulse Ox 98.8 F 65 12 169/101 100 03/01/20 14:02 03/01/20 23:30 03/01/20 23:16 03/01/20 23:30 03/01/20 23:30 General appearance: Present: no acute distress, well-nourished - EENT Eyes: Present: PERRL, EOM intact. Absent: scleral icterus ENT: hearing intact, clear oral mucosa, dentition normal - Neck Neck: Present: supple, normal ROM - Respiratory Respiratory effort: normal Respiratory: bilateral: rales - Cardiovascular Rhythm: regular Heart Sounds: Present: S1 & S2. Absent: gallop, systolic murmur, diastolic murmur, rub - Extremities Extremities: no ischemia, pulses intact, pulses symmetrical, Full ROM Extremity abnormal: edema (1+ bilateral lower extremity edema) Peripheral Pulses: within normal limits - Abdominal General gastrointestinal: Present: soft, non-tender, non-distended, normal bowel sounds. Absent: mass - Integumentary Integumentary: Present: clear, warm, dry - Musculoskeletal Musculoskeletal: strength equal bilaterally - Psychiatric Psychiatric: appropriate mood/affect, intact judgment & insight, memory intact, cooperative - Neurologic Neurologic: CNII-XII intact, no focal deficits, moves all extremities HEART Score - HEART Score EKG: Non-specific Troponin: Troponin T < 0.010 ng/mL (0.00-0.029) 03/01/20 22:24 Results - Labs CBC & Chem 7: 03/01/20 14:30 03/01/20 14:30 Labs: Abnormal lab results 03/01/20 03/01/20 03/01/20 Range/Units 14:30 14:30 14:30 WBC 13.2 H (4.5-11.0) K/mm3 RBC 3.41 L (3.65-5.03) M/mm3 Hgb 8.7 L (11.8-15.2) gm/dl Hct 26.1 L (35.5-45.6) % MCV 77 L (84-94) fl MCH 26 L (28-32) pg RDW 17.5 H (13.2-15.2) % Lymph % (Auto) 12.2 L (13.4-35.0) % [place] # 0.9 H (0.0-0.8) K/mm3 Seg Neutrophils % 79.7 H (40.0-70.0) % Seg Neutrophils # 10.6 H (1.8-7.7) K/mm3 Carbon Dioxide 20 L (22-30) mmol/L BUN 28 H (9-20) mg/dL Creatinine 1.5 H (0.8-1.3) mg/dL Uric Acid 12.3 H (3.5-7.6) mg/dL Total Protein 9.0 H (6.3-8.2) g/dL Assessment and Plan - Patient Problems (1) Chest pain Current Visit: Yes Status: Acute Qualifiers: Chest pain type: unspecified Qualified Code(s): R07.9 - Chest pain, unspecified Plan to address problem: We will check serial cardiac enzymes. We will also monitor EKG. We will place patient on daily aspirin, sublingual nitroglycerin and IV morphine as needed for chest pain. Patient will be scheduled for stress test. (2) New onset of congestive heart failure Current Visit: Yes Status: Acute Plan to address problem: We will diurese patient with IV Lasix. Will monitor inputs and output and also monitor daily weights. Patient will be scheduled for echocardiogram. We also place a consult to cardiology for evaluation. (3) Noncompliance Current Visit: Yes Status: Acute Plan to address problem: Compliance with medications encouraged. (4) HTN (hypertension) Current Visit: Yes Status: Chronic Qualifiers: Hypertension type: essential hypertension Qualified Code(s): I10 - Essential (primary) hypertension Plan to address problem: We will resume routine home medications once reconciled. Will monitor vital signs closely. (5) DVT prophylaxis Current Visit: No Status: Acute Plan to address problem: Patient placed on subcutaneous heparin. (6) Full code status Current Visit: Yes Status: Acute
[2020-03-02 02:05] LABS: Chol/HDL Ratio 4.28 %
[2020-03-02] MEDS: MORPHINE 2 MG/1 ML INJ IV PRN ×2 (03:16→07:51)
[2020-03-02] MEDS ORDERED: FUROSEMIDE 40 MG/4 ML INJ IV SCH (06:00)
[2020-03-02] MEDS ORDERED: REGADENOSON 0.4 MG/5 ML INJ IV ONE ×2 (06:50→06:54)
[2020-03-02 09:42] VITALS: BP 144/83
--- NOTE | 2020-03-02 11:02 | Consultation ---
History of Present Illness Consult date: 03/02/20 Requesting physician: KT AVERY Consult reason: chest pain, shortness of breath History of present illness: 49-year-old male with history of hypertension not on medication last few months been having shortness of breath with exertion. Last few days having some chest pain midsternal nonradiating patient's heart score is 3 with abnormal EKG of sinus rhythm with LVH with strain. Patient states having diffuse swelling. But has no PND or orthopnea. Patient's BNP was negative. Denies any fever or chill tick bite or syncope or fever or chills or palpitations Past History Past Medical History: arthritis, hypertension, other (Gout,Anemia,Medication Noncompliance) Past Surgical History: No surgical history Social history: other (H/O Drug use.) Family history: no significant family history Medications and Allergies Allergies Allergy/AdvReac Type Severity Reaction Status Date / Time No Known Allergies Allergy Verified 12/31/18 12:35 Home Medications Medication Instructions Recorded Confirmed Last Taken Type carvediloL [Coreg] 12.5 mg PO BID #60 tablet 07/19/18 Unknown Rx amLODIPine 10 mg PO QDAY #30 tablet 07/27/18 Unknown Rx Amlodipine Besylate [Norvasc] 5 mg PO DAILY #30 tablet 12/31/18 Unknown Rx Ibuprofen [Motrin 800 MG tab] 800 mg PO Q8HR PRN #10 tablet 12/31/18 Unknown Rx carvediloL [Coreg] 12.5 mg PO BID #60 tablet 12/31/18 Unknown Rx predniSONE [Deltasone] 20 mg PO QDAY #5 tab 12/31/18 Unknown Rx Active Meds: Active Medications Acetaminophen (Tylenol) 650 mg PO Q6H PRN PRN Reason: Pain, Mild (1-3) Aspirin (Ecotrin) 325 mg PO QDAY VERONA Furosemide (Lasix) 40 mg IV BID@0600,1800 [facility] Last Admin: 03/02/20 06:21 Dose: 40 mg Documented by: Heparin Sodium (Porcine) (Heparin) 5,000 unit SUB-Q Q8HR [facility] Magnesium Hydroxide (Milk Of Magnesia) 30 ml PO Q4H PRN PRN Reason: Constipation Morphine Sulfate (Morphine) 2 mg IV Q4H PRN PRN Reason: Pain, Moderate (4-6) Last Admin: 03/02/20 07:51 Dose: 2 mg Documented by: Ondansetron HCl (Zofran) 4 mg IV Q8H PRN PRN Reason: Nausea And Vomiting Sodium Chloride (Sodium Chloride Flush Syringe 10 Ml) 10 ml IV BID VERONA Sodium Chloride (Sodium Chloride Flush Syringe 10 Ml) 10 ml IV PRN PRN PRN Reason: LINE FLUSH Review of Systems All systems: negative (As per the HPI) Physical Examination Vital Signs Temp Pulse Resp BP Pulse Ox 98.8 F 94 H 16 166/88 99 03/01/20 14:02 03/01/20 14:02 03/01/20 14:02 03/01/20 14:02 03/01/20 14:02 General appearance: no acute distress, well-nourished HEENT: Positive: PERRL, Mucus Membranes Moist Neck: Positive: neck supple, trachea midline Cardiac: Positive: Reg Rate and Rhythm, S1/S2. Negative: Audible Murmur Lungs: Positive: clear to auscultation, Normal Breath Sounds Neuro: Positive: Grossly Intact Abdomen: Positive: Soft, Active Bowel Sounds. Negative: Tender, Distended Male genitourinary: Positive: normal Skin: Positive: Clear Incision: Cardiac Cath Site Musculoskeletal: No Pain, Normal Range of Motion Extremities: Present: normal. Absent: edema Results 03/01/20 14:30 03/01/20 14:30 Cardiac Enzymes 03/01/20 03/01/20 Range/Units 14:30 22:24 AST 14 (5-40) units/L CK-MB (CK-2) 1.9 (0.0-4.0) ng/mL Lipids 03/02/20 Range/Units 01:09 Triglycerides 125 (2-149) mg/dL Cholesterol 193 (50-199) mg/dL HDL Cholesterol 45 (40-59) mg/dL Cholesterol/HDL Ratio 4.28 % CBC 03/01/20 Range/Units 14:30 WBC 13.2 H (4.5-11.0) K/mm3 RBC 3.41 L (3.65-5.03) M/mm3 Hgb 8.7 L (11.8-15.2) gm/dl Hct 26.1 L (35.5-45.6) % Plt Count 434 (140-440) K/mm3 Lymph # 1.6 (1.2-5.4) K/mm3 [place] # 0.9 H (0.0-0.8) K/mm3 Eos # 0.1 (0.0-0.4) K/mm3 Baso # 0.1 (0.0-0.1) K/mm3 Comprehensive Metabolic Panel 03/01/20 Range/Units 14:30 Sodium 139 (137-145) mmol/L Potassium 4.2 (3.6-5.0) mmol/L Chloride 103.5 (98-107) mmol/L Carbon Dioxide 20 L (22-30) mmol/L BUN 28 H (9-20) mg/dL Creatinine 1.5 H (0.8-1.3) mg/dL Glucose 87 (75-100) mg/dL Calcium 9.7 (8.4-10.2) mg/dL AST 14 (5-40) units/L ALT 14 (7-56) units/L Alkaline Phosphatase 80 (35-129) units/L Total Protein 9.0 H (6.3-8.2) g/dL Albumin 4.2 (3.9-5) g/dL - Imaging and Cardiology Stress echo: report reviewed (Nuclear cardiac perfusion study was normal perfusion no significant ischemia) Echo: report reviewed (Normal LV function mild LVH no significant regurgitation) EKG interpretations - Telemetry EKG Rhythm: Sinus Rhythm (Sinus rhythm LVH with strain) Assessment and Plan In view of patient's negative stress test and normal LV function echocardiogram without significant rotations and a negative BNP patient likely be in heart failure will do BP control may consider anti-inflammatories for the swelling or short course of steroids. Patient urged compliance with blood pressure medicines - Patient Problems (1) Chest pain Current Visit: Yes Status: Acute Qualifiers: Chest pain type: unspecified Qualified Code(s): R07.9 - Chest pain, unspecified (2) AMATO (dyspnea on exertion) Current Visit: Yes Status: Acute (3) Lower leg edema Current Visit: Yes Status: Acute (4) Noncompliance Current Visit: Yes Status: Acute (5) Renal insufficiency Current Visit: Yes Status: Acute (6) HTN (hypertension) Current Visit: Yes Status: Chronic Qualifiers: Hypertension type: essential hypertension Qualified Code(s): I10 - Essential (primary) hypertension
--- NOTE | 2020-03-02 12:13 | Discharge Summary ---
Providers - Providers Date of Admission: 03/01/20 23:59 Attending physician: KT AVERY MD 03/02/20 Consult to Cardiac Rehabilitation [CONS] Routine Reason For Exam: Phase I 03/02/20 00:34 Consult to Physician [CONS] Routine Comment: Consulting Provider: MIRACLE SMART Physician Instructions: Reason For Exam: CHF- NEW ONSET Primary care physician: SHOULDER PAD MOLDER Hospitalization Reason for admission: Chest pain Condition: Stable Hospital course: 49-year-old male with known history of hypertension, gout , arthritis and h istory of noncompliance with medication presenting to the emergency room today complaining of bilateral lower extremity edema ,shortness of breath, and chest pain. Shortness of breath is said to get worse on exertion and feels better on resting. He has been having associated chest pain which has been ongoing for the past 3 days. Patient states his symptoms started about 2 weeks ago and seems to be getting worse. Chest pain is said to be substernal and also to the left side of his chest. Pain is nonradiating. On a scale of 10 pain was about 4/10 in severity. He denies any fever or chills, no nausea vomiting, no headache or dizziness. Patient denies any sick contacts and no recent travel. Denies any contact with anyone with COVID-19. Work-up in the emergency room today reveals significantly elevated blood pressure upon arrival and chest x-ray shows pulmonary vascular congestion. He was given some IV Lasix in the emergency room with some relief. Patient was seen by cardiology In view of patient's negative stress test and normal LV function echocardiogram without significant rotations and a negative BNP patient likely be in heart failure will do BP control may consider anti-inflammatories for the swelling or short course of steroids. Patient urged compliance with blood pressure medicines Patient was discharged was still recommended by cardiology with anti- inflammatory short course of steroids and also empiric antibiotic for possible underlining cellulitis of the right knee. - Patient Problems (1) Chest pain secondary to costochondritis Current Visit: Yes Status: Acute Qualifiers: Chest pain type: unspecified Qualified Code(s): R07.9 - Chest pain, unspecified (2) AMATO (dyspnea on exertion) no evidence of congestive heart failure Current Visit: Yes Status: Acute (3) Lower leg edema presumed secondary to gout mainly right in the area Current Visit: Yes Status: Acute (4) Noncompliance Current Visit: Yes Status: Acute (5) Renal insufficiency Current Visit: Yes Status: Acute (6) HTN (hypertension) Current Visit: Yes Status: Chronic Qualifiers: Hypertension type: essential hypertension Qualified Code(s): I10 - Essential (primary) hypertension (7) right knee cellulitis Disposition: DC/TX-06 HOME UNDER HOME [facility] Time spent for discharge: 35 MINS Core Measure Documentation - Palliative Care Palliative Care/ Comfort Measures: Not Applicable - Core Measures Any of the following diagnoses?: none Exam - Physical Exam Narrative exam: VITAL SIGNS: Reviewed. GENERAL: The patient appears normally developed, Vital signs as documented. HEAD: No signs of head trauma. EYES: Pupils are equal. Extraocular motions intact. EARS: Hearing grossly intact. MOUTH: Oropharynx is normal. NECK: No adenopathy, no JVD. CHEST: Chest with clear breath sounds bilaterally. No wheezes, rales, or rhonchi. CARDIAC: Regular rate and rhythm. S1 and S2, without murmurs, gallops, or rubs. VASCULAR: No Edema. Peripheral pulses normal and equal in all extremities. ABDOMEN: Soft, non tender and non distended. No rebound or guarding, and no masses palpated. Bowel Sounds normal. MUSCULOSKELETAL: Good range of motion of all major joints. Mild swelling of the right knee. Warm to the touch. Extremities without clubbing, cyanosis or edema. NEUROLOGIC EXAM: Alert and oriented x 3 No focal sensory or strength deficits. Speech normal. Follows commands. PSYCHIATRIC: Mood normal. SKIN: detail exam as documented in skin assessment - Constitutional Vitals: Temp Pulse Resp BP Pulse Ox 98.1 F 64 18 144/83 100 03/02/20 03:12 03/02/20 03:12 03/02/20 09:08 03/02/20 09:20 03/02/20 03:12 Plan Activity: advance as tolerated, fall precautions Diet: low fat, low salt Special Instructions: record daily weights, record daily BP diary Follow up with: MEME PEREZ MD [Primary Care Provider] - 7 Days CHRISTINE BENTLEY MD [Staff Physician] - 7 Days [facility] [Provider Group] - 7 Days Prescriptions: amLODIPine 10 mg PO QDAY #30 tablet carvediloL [Coreg] 12.5 mg PO BID #60 tablet predniSONE [Deltasone] 20 mg PO QDAY #5 tab cephALEXin [Keflex] 500 mg PO Q12HR #6 cap
[2020-03-02] MEDS ORDERED: HEPARIN 5,000 UNIT/1 ML VIAL SUB-Q SCH (14:00)
[2020-03-02] MEDS ORDERED: methylPREDNISolone Sod Succinate 125 MG/2 ML INJ IV ONE (14:00)
--- NOTE | 2020-03-02 16:06 | Treadmill Report ---
REASON FOR STUDY: Chest pain, shortness of breath and suspected CHF. READING PHYSICIAN: Dr. Anaya. IMAGING PROTOCOL: The patient received 10 mCi of Technetium 99m Tetrofosmin for resting image and 28 mCi of Technetium 99m Tetrofosmin for stress imaging. The imaging for the whole procedure was completed 30-90 minutes following the initial injection of Technetium 99m Tetrofosmin. The SPECT imaging in the 180 degree arc was performed in the right anterior oblique projection. Computerized reconstruction of the images was performed for analysis. IMAGING RESULTS: Normal cavity size from stress to rest. Normal distribution of radionuclide in the anterior, inferior, septal, and apical regions. Gated SPECT, EF 50% with no wall motion manner. The patient infused Lexiscan with no EKG changes. SUMMARY: 1. Negative Lexiscan EKG. 2. Normal rest and stress myocardial perfusion scan. No significant ischemia. No wall motion abnormality. Gated SPECT, EF 50%. JOB# [id number] CONNER/BRIAN
[2020-03-03] MEDS ORDERED: ASPIRIN EC 325 MG TAB PO SCH (10:00)
== END 2020-03-02 17:42 | disposition home health service (06) ==
LOC: ED 13:10 → 4A 23:59
PROVIDERS: ADMIT Internal Medicine Geriatric Medicine; ATTEND Internal Medicine
DX: I11.0 Hypertensive heart disease with heart failure (principal); I50.9 Heart failure, unspecified; N28.9 Disorder of kidney and ureter, unspecified; R07.89 Other chest pain; R06.00 Dyspnea, unspecified; M10.9 Gout, unspecified; M19.90 Unspecified osteoarthritis, unspecified site; D64.9 Anemia, unspecified; M94.0 Chondrocostal junction syndrome [Tietze]; R79.89 Other specified abnormal findings of blood chemistry; R60.0 Localized edema; Z91.14 Patient's other noncompliance with medication regimen
CPT/HCPCS: 36415; 71045; 78452; 80053; 80061; 81001; 82550; 82553; 83880; 84484; 84550; 85025; 93005; 93017; 93306; 96372; 96374; 96375; 96376; 99291; A9502; G0378; J1644; J1940; J2270; J2785; J2930

== ENCOUNTER 2021-11-06 10:34 | Emergency (ER) | payer MEDICAID, OTHER ==
[2021-11-06 12:56] LABS: Bilirubin,Urine NEG (Negative); Blood,Urine NEG (Negative); Color,Urine Straw (Yellow); Mucus,Urine FEW /HPF; Urobilinogen,Urine < 2.0 mg/dL (<2.0); WBC,Urine < 1.0 /HPF (0.0-6.0)
[2021-11-06] MEDS ORDERED: cloNIDine 0.1 MG TAB PO ONE (18:48)
--- NOTE | 2021-11-06 19:00 | Emergency Department Report ---
ED General Adult HPI - General Chief complaint: High BP Stated complaint: RIGHT SIDE PAIN Time Seen by Provider: 11/06/21 18:47 Source: patient Mode of arrival: Ambulatory Limitations: No Limitations - History of Present Illness Initial comments: Patient is 51 years old male with history of hypertension and stroke. Patient presented to the ER stating that his blood pressure is high and he is out of his blood pressure medicine for the last 2-month. Patient denies any headache, neck pain, chest pain, shortness of breath, new focal weakness, numbness or tingling sensation. Patient found to have a blood pressure of 200/119. Severity scale (0 -10): 0 - Related Data Previous Rx's Medication Instructions Recorded Last Taken Type Ibuprofen [Motrin 800 MG tab] 800 mg PO Q8HR PRN #10 tablet 12/31/18 Unknown Rx amLODIPine 10 mg PO QDAY #30 tablet 03/02/20 Unknown Rx carvediloL [Coreg] 12.5 mg PO BID #60 tablet 03/02/20 Unknown Rx cephALEXin [Keflex] 500 mg PO Q12HR #6 cap 03/02/20 Unknown Rx predniSONE [Deltasone] 20 mg PO QDAY #5 tab 03/02/20 Unknown Rx Allergies Allergy/AdvReac Type Severity Reaction Status Date / Time No Known Allergies Allergy Verified 12/31/18 12:35 ED Review of Systems ROS: Stated complaint: RIGHT SIDE PAIN Other details as noted in HPI Comment: All other systems reviewed and negative Constitutional: denies: chills, fever Respiratory: denies: cough, shortness of breath, SOB with exertion, SOB at rest Cardiovascular: denies: chest pain, palpitations Gastrointestinal: denies: abdominal pain, nausea, vomiting Musculoskeletal: denies: back pain Neurological: denies: headache, weakness, numbness, paresthesias, confusion ED Past Medical Hx - Past Medical History Hx Hypertension: Yes (non compliant with meds) Hx Congestive Heart Failure: No Hx Diabetes: No Hx Arthritis: Yes Hx Asthma: No Hx COPD: No Additional medical history: GOUT. anemia, Hx of drug use - Social History Smoking Status: Never Smoker Substance Use Type: None - Medications Home Medications: Home Medications Medication Instructions Recorded Confirmed Last Taken Type Ibuprofen [Motrin 800 MG tab] 800 mg PO Q8HR PRN #10 tablet 12/31/18 Unknown Rx amLODIPine 10 mg PO QDAY #30 tablet 03/02/20 Unknown Rx carvediloL [Coreg] 12.5 mg PO BID #60 tablet 03/02/20 Unknown Rx cephALEXin [Keflex] 500 mg PO Q12HR #6 cap 03/02/20 Unknown Rx predniSONE [Deltasone] 20 mg PO QDAY #5 tab 03/02/20 Unknown Rx ED Physical Exam - General Limitations: No Limitations General appearance: alert, in no apparent distress - Head Head exam: Present: atraumatic, normocephalic, normal inspection - Eye Eye exam: Present: normal appearance - ENT ENT exam: Present: normal exam, normal orophraynx, mucous membranes moist - Neck Neck exam: Present: normal inspection, full ROM. Absent: tenderness, meningismus - Respiratory Respiratory exam: Present: normal lung sounds bilaterally - Cardiovascular Cardiovascular Exam: Present: regular rate, normal rhythm, normal heart sounds - GI/Abdominal GI/Abdominal exam: Present: soft, normal bowel sounds. Absent: distended, tenderness, guarding, rebound, rigid, organomegaly, mass, bruit, pulsatile mass, hernia - Extremities Exam Extremities exam: Present: normal inspection, full ROM, normal capillary refill - Back Exam Back exam: Present: normal inspection. Absent: CVA tenderness (R), CVA tenderness (L) - Neurological Exam Neurological exam: Present: alert, oriented X3, motor sensory deficit - Psychiatric Psychiatric exam: Present: normal mood - Skin Skin exam: Present: warm, intact, normal color ED Course Vital Signs 11/06/21 11/06/21 12:18 17:50 Temperature 98.4 F 97.8 F Pulse Rate 69 100 H Respiratory 16 14 Rate Blood Pressure 210/127 Blood Pressure 200/114 [Right] O2 Sat by Pulse 98 100 Oximetry Critical care attestation.: If time is entered above; I have spent that time in minutes in the direct care of this critically ill patient, excluding procedure time. ED Disposition Clinical Impression: Malignant hypertension Condition: Stable Instructions: Hypertension (ED)
[2021-11-06 20:10] LABS: Basophils # (Auto) 0.1 K/mm3 (0.0-0.1); Eosinophils # (Auto) 0.4 K/mm3 (0.0-0.4); Eosinophils % (Auto) 2.8 % (0.0-4.3); Hematocrit 40.1 % (35.5-45.6); Hemoglobin 12.8 gm/dl (11.8-15.2); Lymphocytes # (Auto) 2.8 K/mm3 (1.2-5.4); Lymphocytes % (Auto) 18.4 % (13.4-35.0); Mean Corpuscular HGB Conc 32 % (32-34); Mean Corpuscular Volume 92 fl (84-94); Monocytes % (Auto) 6.4 % (0.0-7.3); Red Blood Count 4.38 M/mm3 (3.65-5.03); Red Cell Distribution Width 15.9 % (13.2-15.2)
[2021-11-06 20:12] LABS: Calcium 9.5 mg/dL (8.4-10.2)
[2021-11-06 20:13] LABS: Platelet Count 329 K/mm3 (140-440)
[2021-11-06 21:03] VITALS: BP 163/102
--- NOTE | 2021-11-07 10:48 | Electrocardiograph Report ---
[facility] Test Date: 2021-11-06 Test Time: 12:34:08 Pat Name: NANETTE HERNANDEZ Department: Room: Gender: M [employer]: JOSPEHINE : 1970 Requested By: CARMITA RAMIREZ Order Number: [id number] Reading MD: Cb Martínez Measurements Intervals [place] Rate: 66 P: 33 MO: 158 QRS: 13 QRSD: 88 T: -71 QT: 399 QTc: 418 Interpretive Statements Sinus rhythm Probable left atrial enlargement Probable LVH with secondary repol abnrm Inferior infarct, age indeterminate No previous ECG available for comparison Electronically Signed On 11-07-2021 10:48:08 EDT by Cb Martínez
== END 2021-11-06 21:00 | disposition home or self-care (01) ==
LOC: ED 10:34
DX: I10 Essential (primary) hypertension (principal)
CPT/HCPCS: 36415; 80048; 81001; 82962; 85025; 93005; 99283

== ENCOUNTER 2021-12-26 19:08 | Emergency (ER) | payer MEDICAID ==
[2021-12-26 19:19] VITALS: BP 154/94
[2021-12-27] MEDS ORDERED: ACETAMINOPHEN W/CODEINE 300-30 MG TAB PO ONE (01:18)
--- NOTE | 2021-12-27 01:39 | Emergency Department Report ---
ED General Adult HPI - General Chief complaint: Upper Respiratory Infection Stated complaint: SOB/COUGH Time Seen by Provider: 12/27/21 01:17 Source: EMS Mode of arrival: Stretcher Limitations: No Limitations - History of Present Illness Initial comments: Patient is a 51-year-old male with history of hypertension and CVA resulting in right-sided weakness and right knee ORIF who presents for cough chills states positive COVID test at home today. Symptoms are rated at 4/10 for productive cough clear per patient. Patient denies wheezing or stridor. Symptoms are exacerbated by activity. Symptoms are relieved by nothing tried. Patient is alert oriented x3 and tolerating p.o. intake. Patient denies fevers or chills no dizziness or lightheadedness. And no nausea vomiting. Patient states primary trigger for ED visit was a persistent cough. Severity scale (0 -10): 6 - Related Data Previous Rx's Medication Instructions Recorded Last Taken Type Ibuprofen [Motrin 800 MG tab] 800 mg PO Q8HR PRN #10 tablet 12/31/18 Unknown Rx amLODIPine 10 mg PO QDAY #30 tablet 03/02/20 Unknown Rx carvediloL [Coreg] 12.5 mg PO BID #60 tablet 03/02/20 Unknown Rx cephALEXin [Keflex] 500 mg PO Q12HR #6 cap 03/02/20 Unknown Rx predniSONE [Deltasone] 20 mg PO QDAY #5 tab 03/02/20 Unknown Rx amLODIPine 10 mg PO DAILY #30 tab 11/06/21 Unknown Rx carvediloL [Coreg] 12.5 mg PO BID #60 tablet 11/06/21 Unknown Rx Albuterol Mdi (or & Nicu Only) 2 puff IH QID PRN #8.5 gram 12/27/21 Unknown Rx [ProAir HFA Inhaler] Ibuprofen [Motrin 800 MG tab] 800 mg PO Q8HR PRN #30 tablet 12/27/21 Unknown Rx predniSONE [Deltasone] 40 mg PO QDAY 5 Days #10 tab 12/27/21 Unknown Rx Allergies Allergy/AdvReac Type Severity Reaction Status Date / Time No Known Allergies Allergy Verified 12/31/18 12:35 ED Review of Systems ROS: Stated complaint: SOB/COUGH Other details as noted in HPI Constitutional: denies: chills, fever Eyes: denies: eye pain, eye discharge, vision change ENT: congestion. denies: ear pain, throat pain Respiratory: cough. denies: shortness of breath, wheezing Cardiovascular: denies: chest pain, palpitations, dyspnea on exertion, paroxysmal nocturnal dyspnea Endocrine: no symptoms reported Gastrointestinal: denies: abdominal pain, nausea, vomiting, diarrhea Genitourinary: denies: urgency, dysuria Musculoskeletal: denies: back pain, joint swelling, arthralgia Skin: denies: rash, lesions Neurological: denies: headache, weakness, paresthesias, vertigo Psychiatric: denies: anxiety, depression Hematological/Lymphatic: denies: easy bleeding, easy bruising ED Past Medical Hx - Past Medical History Previous Medical History?: Yes Hx Hypertension: Yes (non compliant with meds) Hx CVA: Yes Hx Congestive Heart Failure: Yes Hx Diabetes: No Hx Arthritis: Yes Hx Asthma: No Hx COPD: No Additional medical history: GOUT. anemia, Hx of drug use - Surgical History Past Surgical History?: No - Social History Smoking Status: Current Every Day Smoker - Medications Home Medications: Home Medications Medication Instructions Recorded Confirmed Last Taken Type Ibuprofen [Motrin 800 MG tab] 800 mg PO Q8HR PRN #10 tablet 12/31/18 Unknown Rx amLODIPine 10 mg PO QDAY #30 tablet 03/02/20 Unknown Rx carvediloL [Coreg] 12.5 mg PO BID #60 tablet 03/02/20 Unknown Rx cephALEXin [Keflex] 500 mg PO Q12HR #6 cap 03/02/20 Unknown Rx predniSONE [Deltasone] 20 mg PO QDAY #5 tab 03/02/20 Unknown Rx amLODIPine 10 mg PO DAILY #30 tab 11/06/21 Unknown Rx carvediloL [Coreg] 12.5 mg PO BID #60 tablet 11/06/21 Unknown Rx Albuterol Mdi (or & Nicu Only) 2 puff IH QID PRN #8.5 gram 12/27/21 Unknown Rx [ProAir HFA Inhaler] Ibuprofen [Motrin 800 MG tab] 800 mg PO Q8HR PRN #30 tablet 12/27/21 Unknown Rx predniSONE [Deltasone] 40 mg PO QDAY 5 Days #10 tab 12/27/21 Unknown Rx ED Physical Exam - General Limitations: No Limitations General appearance: alert, in no apparent distress - Head Head exam: Present: normocephalic, normal inspection - Eye Eye exam: Present: normal appearance, EOMI Pupils: Present: normal accommodation - ENT ENT exam: Present: normal orophraynx, mucous membranes moist - Neck Neck exam: Present: normal inspection, full ROM. Absent: tenderness, ly mphadenopathy - Respiratory Respiratory exam: Present: normal lung sounds bilaterally, chest wall tenderness (Right anterior lateral chest wall tenderness to deep palpation there is no crepitus no step-off no ecchymosis.). Absent: respiratory distress, wheezes, rales, rhonchi, stridor, prolonged expiratory - Cardiovascular Cardiovascular Exam: Present: regular rate, normal rhythm, normal heart sounds. Absent: systolic murmur, diastolic murmur, rubs, gallop - GI/Abdominal GI/Abdominal exam: Present: soft, normal bowel sounds. Absent: distended, tenderness, guarding, rebound, rigid, bruit, hernia - Rectal Rectal exam: Present: deferred - Extremities Exam Extremities exam: Present: normal inspection, full ROM, normal capillary refill. Absent: pedal edema - Back Exam Back exam: Present: normal inspection, full ROM. Absent: CVA tenderness (R), CVA tenderness (L) - Neurological Exam Neurological exam: Present: alert, oriented X3, CN II-XII intact, normal gait, motor sensory deficit, reflexes normal - Psychiatric Psychiatric exam: Present: normal affect, normal mood. Absent: anxious - Skin Skin exam: Present: warm, dry, intact, normal color. Absent: rash ED Course Vital Signs 12/26/21 19:16 Temperature 98.6 F Pulse Rate 68 Respiratory 18 Rate Blood Pressure 154/94 O2 Sat by Pulse 98 Oximetry ED Medical Decision Making - Radiology Data Radiology results: report reviewed, image reviewed CHEST 2 VIEWS INDICATION / CLINICAL INFORMATION: cough productive. COMPARISON: Chest x-ray 03/01/2020 FINDINGS: SUPPORT DEVICES: None. HEART / MEDIASTINUM: Heart size and mediastinal contour appear within normal limits. LUNGS / PLEURA: No significant pulmonary or pleural abnormality. No pneumothorax. BONES: No significant osseous abnormality. ADDITIONAL FINDINGS: No significant additional findings. IMPRESSION: 1. No active cardiopulmonary disease. Signer Name: Mirta Soriano II, MD Signed: 12/27/2021 1:38 AM Workstation Name: [id number] Transcribed By: AILEEN Dictated By: MIRTA SORIANO II, MD Electronically Authenticated By: MIRTA SORIANO II, MD Signed Date/Time: 12/27/21137 DD/ 6 TD/TT: - Medical Decision Making Chest x-ray no infiltrates no opacities lung sounds are clear vital signs are normal respirations are even and nonlabored plan DC to home with prescriptions. Follow-up with primary care doctor in 2 to 3 days. Return to emergency department should symptoms worsen. Patient verbalized agreement and understanding with discharge plan patient DC'd home in stable condition at this time. Critical care attestation.: If time is entered above; I have spent that time in minutes in the direct care of this critically ill patient, excluding procedure time. ED Disposition Clinical Impression: Cough, Viral syndrome Asthma Qualifiers: Asthma severity: mild Asthma persistence: intermittent Asthma complication type: with acute exacerbation Qualified Code(s): J45.21 - Mild intermittent asthma with (acute) exacerbation Allergic reaction Qualifiers: Encounter type: initial encounter Qualified Code(s): T78.40XA - Allergy, unspecified, initial encounter Disposition: 01 HOME / SELF CARE / HOMELESS Is pt being admited?: No Does the pt Need Aspirin: No Condition: Stable Instructions: Asthma (ED), Viral Respiratory Infection, [id number], Asthma, Adult Additional Instructions: Take medication as prescribed, follow-up with your doctor in 2 to 3 days. Return to emergency department should symptoms worsen. Prescriptions: predniSONE [Deltasone] 40 mg PO QDAY 5 Days #10 tab Ibuprofen [Motrin 800 MG tab] 800 mg PO Q8HR PRN #30 tablet PRN Reason: pain fever Albuterol Mdi (or & Nicu Only) [ProAir HFA Inhaler] 2 puff IH QID PRN #8.5 gram PRN Reason: Shortness Of Breath Referrals: JESSICA FANG MD [Staff Physician] - 2-3 Days Forms: Work/School Release Form(ED) Time of Disposition: 03:46
--- NOTE | 2021-12-27 01:42 | XRay Report ---
CHEST 2 VIEWS INDICATION / CLINICAL INFORMATION: cough productive. COMPARISON: Chest x-ray 03/01/2020 FINDINGS: SUPPORT DEVICES: None. HEART / MEDIASTINUM: Heart size and mediastinal contour appear within normal limits. LUNGS / PLEURA: No significant pulmonary or pleural abnormality. No pneumothorax. BONES: No significant osseous abnormality. ADDITIONAL FINDINGS: No significant additional findings. IMPRESSION: 1. No active cardiopulmonary disease. Signer Name: Rey Soriano II, MD Signed: 12/27/2021 1:38 AM Workstation Name: [id number]
== END 2021-12-27 04:23 | disposition home or self-care (01) ==
LOC: ED 19:08
DX: T78.40XA Allergy, unspecified, initial encounter (principal); B34.9 Viral infection, unspecified; R05.9 Cough, unspecified; J45.909 Unspecified asthma, uncomplicated; I11.0 Hypertensive heart disease with heart failure; I50.9 Heart failure, unspecified; M19.90 Unspecified osteoarthritis, unspecified site; F17.200 Nicotine dependence, unspecified, uncomplicated; Z86.73 Personal history of transient ischemic attack (TIA), and cerebral infarction without residual deficits; Z79.899 Other long term (current) drug therapy; X58.XXXA Exposure to other specified factors, initial encounter
CPT/HCPCS: 71046; 99283